=== PATIENT | male | born 1935 | race Caucasian/White ===

== ENCOUNTER 2017-06-16 05:33 | Outpatient (CLI) | payer MEDICARE ==
[~2017-06-16] VITALS: Ht 167.6 cm; Wt 76.7 kg
[~2017-06-16 05:33] MED LIST: ASPI-84; CLPD75T PO; CND32T PO; EZET10TA5 PO; FLAX100031 PO; FNST5T PO; FOLI0.4T2 PO; HCT25T PO; LOSA50TA6 PO; METO50TA7 PO; MULT-1029 PO; NF-ESOM40C PO; OMEG-12 PO; OMEP20TA2 PO; OSTEO BI-FLEX1 EACH PO; SMV20T PO; TRM50T PO
[2017-06-16] MEDS ORDERED: FINA5TAB6 PO (11:32)
[2017-06-16] MEDS ORDERED: METO50TA15 PO (11:32)
[2017-06-16] MEDS ORDERED: LOSA1TAB23 PO (11:32)
[2017-06-16] MEDS ORDERED: CLOP75TA28 PO (11:32)
[2017-06-16] MEDS ORDERED: ATOR80TA76 PO (11:33)
[2017-06-16] MEDS ORDERED: FURO40TA4 PO (11:33)
[2017-06-16] MEDS ORDERED: POTA99TA21 PO (11:33)
[2017-06-16] MEDS ORDERED: CYAN250010 PO (11:33)
[2017-06-16] MEDS ORDERED: PANT40TA3 PO (11:33)
== END 2017-06-16 11:34 ==
LOC: PREOP 05:33
PROVIDERS: ATTEND Internal Medicine
DX: Z01.818 Encounter for other preprocedural examination (principal); R19.7 Diarrhea, unspecified; R63.4 Abnormal weight loss

== ENCOUNTER 2017-06-20 07:20 | Day surgery (SDC) | payer MEDICARE ==
--- NOTE | 2017-06-16 05:57 | HISTORY AND PHYSICAL ---
DATE OF SERVICE: COLONOSCOPY HISTORY AND PHYSICAL HISTORY OF PRESENT ILLNESS: The patient is an 82-year-old white male referred by Dr. Blackmon for colonoscopy. He reports for the past month he has had left lower quadrant abdominal pain associated with diarrhea and about an 8-pound weight loss. He has had no chills or fever and denies bright red blood per rectum. Occasionally, his stools have been darker. He denies Pepto-Bismol usage, has used Kaopectate and Maalox. He has had no night sweats, chills or fever but does report a past history of diverticulitis. He also has a history of colon polyps that has been over 15 years since his last reported colonoscopy. PAST MEDICAL HISTORY: Significant for coronary artery disease, past history of stent placement over 5 years ago. He has history of hypertension and hyperlipidemia. He has a history of reflux for which he has been on pantoprazole. FAMILY HISTORY: He is not aware of any family history for colon cancer or other GI tract malignancy. SOCIAL HISTORY: He reports no past alcohol or smoking history. There is no history of illicit drug. MEDICATIONS ON ADMISSION: Include fish oil 1 capsule daily, metoprolol tartrate 50 mg daily, finasteride 5 mg daily, Plavix 75 mg daily, atorvastatin 80 mg daily, and losartan HCT 100/25 daily. He denies any nonsteroidal medication usage. REVIEW OF SYSTEMS: CONSTITUTIONAL: He denies night sweats, chills, fever. There is positive weight loss, 8 pounds last month. CARDIOVASCULAR: He does have a history of intervention, stent placement in the past. Denies chest pain at rest or with exertion. He has had a little more dyspnea on exertion, has had no presyncope or syncope. PULMONARY: He denies chest pain, cough, or wheezing. GASTROINTESTINAL: As per HPI. PSYCHIATRIC: He denies any ongoing problems with anxiety or depression. PHYSICAL EXAMINATION: GENERAL: Reveals a somewhat anxious appearing white male in no acute distress; otherwise, well kempt. VITAL SIGNS: Weight was 170 pounds. Last office weight on this patient was in 2008, when he weighed 172.4 pounds. Blood pressure 120/62, heart rate 72 and regular. HEENT: Unremarkable. Sclerae nonicteric. He has a Mallampati class 2 oropharyngeal configuration. No evidence for exudate or erythema are noted. NECK: Revealed no JVD, adenopathy or bruits. CHEST: Clear. CARDIOVASCULAR: Reveals a regular rate and rhythm without significant murmur, S3, or S4. ABDOMEN: Soft, supple. There is some mild left lower quadrant discomfort to palpation without rebound or guarding. No mass or organomegaly is noted. Bowel sounds are positive in all four quadrants and no bruits are noted. EXTREMITIES: Reveal no cyanosis, clubbing or edema. ASSESSMENT AND PLAN: 1. The patient is set up for diagnostic colonoscopy with possible EGD to follow for evaluation of left lower quadrant abdominal pain with diarrhea and associated weight loss. 2. Coronary artery disease. It has been more than 5 years since stent placement. We will have the patient stop Plavix and continue to abstain from nonsteroidal medications after this Friday with subsequent endoscopy to proceed on 06/20/2016. Prep instructions were given and questions were answered. I thank you for the referral of this pleasant gentleman. Job ID: [id number] DocumentID: [id number] Dictated Date: 06/12/2017 17:12:07 Insurance Agency Manager Date: 06/12/2017 17:43:12 Dictated By: MIGNON PADILLA MD [facility]
[~2017-06-20] VITALS: Ht 167.6 cm; Wt 76.7 kg
[~2017-06-20 07:20] MED LIST changes: +ATOR80TA76 PO; +CLOP75TA28 PO; +CYAN250010 PO; +FINA5TAB6 PO; +FURO40TA4 PO; +LOSA1TAB23 PO; +METO50TA15 PO; +PANT40TA3 PO; +POTA99TA21 PO
--- OUTSIDE RECORDS SUMMARY | 2017-06-20 07:24 | XMS REPORT ---
Author Author TARYN HOLT [facility] eClinicalWorks Address Unknown Phone Unavailable Care Team Providers Care Improvement Coordinator Name Role Phone TARYN HOLT Unavailable Allergies No Known Allergies Problems Problem Type Condition Code Onset Dates Condition Status Problem Rash and other nonspecific skin eruption 782.1 Active Medications Medication Code System Code Instructions Start Date End Date Status Dosage Plavix [facility] [address]-43 75 MG Orally Once a day Jun 01, 2014 1 tablet Results No Known Results Summary Purpose eClinicalWorks Submission
--- OUTSIDE RECORDS SUMMARY | 2017-06-20 07:24 | XMS REPORT ---
Author Author TARYN HOLT Organization eClinicalWorks Address Unknown Phone Unavailable Care Team Providers Care Fire Loss Prevention Engineer Name Role Phone TARYN HOLT CP Unavailable Allergies No Known Allergies Problems Problem Type Condition Code Onset Dates Condition Status Problem Hypertension I10 Active Problem Hyperlipidemia E78.5 Active Problem Coronary artery disease I25.10 Active Problem Rash and other nonspecific skin eruption 782.1 Active Problem GERD (gastroesophageal reflux disease) K21.9 Active Problem Chronic kidney disease N18.9 Active Medications Medication Code System Code Instructions Start Date End Date Status Dosage Plavix [facility] [address]-53 75 MG Orally Once a day Jun 01, 2014 1 tablet Results No Known Results Summary Purpose eClinicalWorks Submission
--- OUTSIDE RECORDS SUMMARY | 2017-06-20 07:24 | XMS REPORT ---
Author Author TARYN HOLT [facility] eClinicalWorks Address Unknown Phone Unavailable Care Team Providers Care Hot Metal Car Operator Name Role Phone TARYN HOLT CP Unavailable Allergies No Known Allergies Problems Problem Type Condition Code Onset Dates Condition Status Problem Rash and other nonspecific skin eruption 782.1 Active Medications No Known Medications Results No Known Results Summary Purpose eClinicalWorks Submission
--- OUTSIDE RECORDS SUMMARY | 2017-06-20 07:24 | XMS REPORT ---
Author Author TARYN HOLT Organization eClinicalWorks Address Unknown Phone Unavailable Care Team Providers Care News Analyst Name Role Phone TARYN HOLT CP Unavailable Allergies No Known Allergies Problems Problem Type Condition Code Onset Dates Condition Status Problem Coronary artery disease I25.10 Active Problem Hypertension I10 Active Problem Diastolic dysfunction I51.9 Active Problem Chronic kidney disease N18.9 Active Problem Hyperlipidemia E78.5 Active Problem GERD (gastroesophageal reflux disease) K21.9 Active Medications No Known Medications Results No Known Results Summary Purpose eClinicalWorks Submission
--- OUTSIDE RECORDS SUMMARY | 2017-06-20 07:24 | XMS REPORT ---
Author Author TARYN HOLT [facility] eClinicalWorks Address Unknown Phone Unavailable Care Team Providers Care Frame Coverer Name Role Phone TARYN HOLT CP Unavailable Allergies No Known Allergies Problems Problem Type Condition ICD-9 Code Onset Dates Condition Status Problem Rash and other nonspecific skin eruption 782.1 Active Medications No Known Medications Results No Known Results Summary Purpose eClinicalWorks Submission
--- OUTSIDE RECORDS SUMMARY | 2017-06-20 07:24 | XMS REPORT ---
Author Author TARYN HOLT [facility] eClinicalWorks Address Unknown Phone Unavailable Care Team Providers Care Parts Counterperson Name Role Phone TARYN HOLT CP Unavailable Allergies No Known Allergies Problems Problem Type Condition Code Onset Dates Condition Status Problem Coronary artery disease I25.10 Active Problem Hypertension I10 Active Problem Diastolic dysfunction I51.9 Active Problem Chronic kidney disease N18.9 Active Assessment Hypertension I10 Active Problem Hyperlipidemia E78.5 Active Problem GERD (gastroesophageal reflux disease) K21.9 Active Medications No Known Medications Procedures Procedure Coding System Code Date VENIPUNCT, ROUTINE* CPT-4 72885 Jan 23, 2016 [facility] NOBLL Jan 23, 2016 Results Name Result Date Reference Range Unit Abnormality Flag CMP ----Calcium, Serum 9.4 [id number] 8.6-10.2 mg/dL ----Carbon Dioxide, Total 23 [id number] 18-29 mmol/L ----ALT (SGPT) 21 [id number] 0-44 IU/L ----Creatinine, Serum 1.44 [id number] 0.76-1.27 mg/dL H ----AST (SGOT) 19 [id number] 0-40 IU/L ----eGFR If NonAfricn Am 46 [id number] >59 mL/min/1.73 L ----Alkaline Phosphatase, S 58 [id number] 39-117 IU/L ----eGFR If Africn Am 53 [id number] >59 mL/min/1.73 L ----Bilirubin, Total 0.6 [id number] 0.0-1.2 mg/dL ----BUN/Creatinine Ratio 23 [id number] 10-22 H ----A/G Ratio 1.5 [id number] 1.1-2.5 ----Sodium, Serum 143 [id number] 134-144 mmol/L ----Globulin, Total 2.7 [id number] 1.5-4.5 g/dL ----Potassium, Serum 4.3 [id number] 3.5-5.2 mmol/L ----Glucose, Serum 105 [id number] 65-99 mg/dL H ----Chloride, Serum 104 [id number] 97-108 mmol/L ----Albumin, Serum 4.0 [id number] 3.5-4.7 g/dL ----BUN 33 [id number] 8-27 mg/dL H ----Protein, Total, Serum 6.7 [id number] 6.0-8.5 g/dL ROUTINE VENIPUNCTURE LIPID PANEL ----VLDL Cholesterol Wesley 16 [id number] 5-40 mg/dL ----LDL Cholesterol Calc 87 [id number] 0-99 mg/dL ----Triglycerides 78 [id number] 0-149 mg/dL ----HDL Cholesterol 33 [id number] >39 mg/dL L ----Cholesterol, Total 136 [id number] 100-199 mg/dL Summary Purpose eClinicalWorks Submission
--- OUTSIDE RECORDS SUMMARY | 2017-06-20 07:24 | XMS REPORT ---
Author Author TARYN HOLT Organization eClinicalWorks Address Unknown Phone Unavailable Care Team Providers Care General Manager Farm Name Role Phone TARYN HOLT Unavailable Allergies No Known Allergies Problems Problem Type Condition ICD-9 Code Onset Dates Condition Status Problem Rash and other nonspecific skin eruption 782.1 Active Medications Medication Code System Code Instructions Start Date End Date Status Dosage Keflex [facility] [address]-05 500 MG Orally Twice a day Dec 23, 2014 Jan 02, 2015 1 capsule Results No Known Results Summary Purpose eClinicalWorks Submission
--- OUTSIDE RECORDS SUMMARY | 2017-06-20 07:24 | XMS REPORT ---
Author Author TARYN HOLT [facility] Address [address] [place] [address] Care Team Providers Care Rock Contractor Name Role Phone TARYN HOLT Unavailable PROBLEMS Type Condition ICD9-CM Code [id number] Code Onset Dates Condition Status SNOMED Code Problem Diastolic dysfunction I51.9 Active 0652664 Problem Hypertension I10 Active 22770669 Problem Hyperlipidemia E78.5 Active 81794674 Problem Chronic kidney disease N18.9 Active 659510725 Problem GERD (gastroesophageal reflux disease) K21.9 Active 477865919 Problem Coronary artery disease I25.10 Active 21373617 ALLERGIES No Information SOCIAL HISTORY Never Assessed PLAN OF CARE VITAL SIGNS MEDICATIONS No Known Medications RESULTS No Results PROCEDURES No Known procedures IMMUNIZATIONS No Known Immunizations MEDICAL (GENERAL) HISTORY Type Description Date Medical History hypertension Medical History hyperlipidemia Medical History TIA Medical History [place] 1987 Surgical History appendectomy; age 31 Surgical History hernia repair Surgical History heart cath Hospitalization History septic from appendix rupture Hospitalization History [place]
--- OUTSIDE RECORDS SUMMARY | 2017-06-20 07:24 | XMS REPORT ---
Author Author NIALL CLARK Organization eClinicalWorks Address Unknown Phone Unavailable Care Team Providers Care Weight Loss Sales Consultant Name Role Phone NIALL CLARK CP Unavailable Allergies No Known Allergies Problems Problem Type Condition Code Onset Dates Condition Status Problem Coronary artery disease I25.10 Active Problem Hypertension I10 Active Problem Diastolic dysfunction I51.9 Active Problem Chronic kidney disease N18.9 Active Problem Rash and other nonspecific skin eruption 782.1 Active Problem Hyperlipidemia E78.5 Active Problem GERD (gastroesophageal reflux disease) K21.9 Active Medications No Known Medications Results No Known Results Summary Purpose eClinicalWorks Submission
--- OUTSIDE RECORDS SUMMARY | 2017-06-20 07:24 | XMS REPORT ---
Author Author TARYN HOLT Organization eClinicalWorks Address Unknown Phone Unavailable Care Team Providers Care Provider Contracting Consultant Name Role Phone TARYN HOLT CP Unavailable Allergies No Known Allergies Problems Problem Type Condition Code Onset Dates Condition Status Assessment Medication monitoring encounter Z51.81 Active Problem Rash and other nonspecific skin eruption 782.1 Active Medications No Known Medications Results No Known Results Summary Purpose eClinicalWorks Submission
--- OUTSIDE RECORDS SUMMARY | 2017-06-20 07:25 | XMS REPORT ---
Author Author TARYN HOLT Organization eClinicalWorks Address Unknown Phone Unavailable Care Team Providers Care Animal Care Technician Name Role Phone TARYN HOLT CP Unavailable [...]
--- OUTSIDE RECORDS SUMMARY | 2017-06-20 07:25 | XMS REPORT ---
Author NIALL Spivey [facility] eClinicalWorks Address Unknown Phone Unavailable Care Team Providers Care Rod Puller And Coiler Name Role Phone NIALL CLARK CP Unavailable Allergies, Adverse Reactions, Alerts Substance Reaction Event Type N.K.D.A. 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 Problem Coronary artery disease I25.10 Active Problem Hypertension I10 Active Problem Diastolic dysfunction I51.9 Active Problem Chronic kidney disease N18.9 Active Problem Rash and other nonspecific skin eruption 782.1 Active Problem Hyperlipidemia E78.5 Active Problem GERD (gastroesophageal reflux disease) K21.9 Active Medications Medication Code System Code Instructions Start Date End Date Status Dosage Fish Oil [facility] [address]-11 1000 MG Orally Once a day 1 capsule Centrum Silver Adult [address] [facility] [address]-12 Orally not defined Atorvastatin Calcium [facility] [address]-28 80 MG Orally Once a day [address] [facility] [address]-91 40 MG Orally Once a day May 11, [address] [facility] 60769767265 40 Orally Once a day [address] [facility] [address]-75 75 MG Orally Once a day Jun 01, 2014 1 tablet Pantoprazole Sodium [facility] [address]-89 40 MG Orally Once a day 1 tablet Losartan Potassium-HCTZ [facility] [address]-25 100-25 MG Orally Once a day 1 tablet Osteo Bi-Flex Triple Strength [facility] 27031-[address]27 750-625-30 mg August 05, 2012 1 caplet 1 time per day Metoprolol Tartrate [facility] [address]-02 50 MG Orally Twice a day Jun 01, 2014 take 1 tablet by Oral route 1 time per day with meals Psyllium Husk [facility] [address]-28 not defined Super B Complex/Vitamin C [facility] 13454-[address]273 Orally not defined Finasteride [facility] [address]-21 5 MG Orally Once a day Jun 01, 2014 1 tablet by Oral route 1 time per day Procedures Procedure Coding System Code Date [facility] VISIT ESTABLISHED PATIENT CPT-4 G0467 October 31, 2015 Office Visit, Est Pt., Level 2 CPT-4 02091 October 31, 2015 EXC TR-EXT B9 PENELOPE 2.1-3 CM CPT-4 15235 October 31, 2015 Vital Signs Date/Time: October 31, 2015 Cardiac Monitoring Heart Rate 60 bpm Weight 181.7 lbs Height 68 in Blood Pressure Diastolic 76 mmHg Blood Pressure Systolic 142 mmHg Results No Known Results Summary Purpose eClinicalWorks Submission
--- OUTSIDE RECORDS SUMMARY | 2017-06-20 07:25 | XMS REPORT ---
Author TARYN Villalobos [facility] eClinicalWorks Address Unknown Phone Unavailable Care Team Providers Care Balance Bridge Assembler Name Role Phone TARYN HOLT CP Unavailable Allergies, Adverse Reactions, Alerts Substance Reaction Event Type N.K.D.A. Info Not Available Non Drug Allergy Problems Problem Type Condition Code Onset Dates Condition Status Assessment GERD (gastroesophageal reflux disease) K21.9 Active Assessment Hypertension I10 Active Assessment Hyperlipidemia E78.5 Active Assessment Chronic kidney disease N18.9 Active Problem Hypertension I10 Active Problem Hyperlipidemia E78.5 Active Problem Coronary artery disease I25.10 Active Problem Rash and other nonspecific skin eruption 782.1 Active Assessment Coronary artery disease I25.10 Active Problem GERD (gastroesophageal reflux disease) K21.9 Active Problem Chronic kidney disease N18.9 Active Medications Medication Code System Code Instructions Start Date End Date Status Dosage Psyllium Husk [facility] [address]-49 not defined Finasteride [facility] [address]-56 5 mg Jun 01, 2014 1 tablet by Oral route 1 time per day Atorvastatin Calcium [facility] [address]-99 80 MG Orally Once a day 1 tablet Osteo Bi-Flex Triple Strength [facility] 56185-44743 750-625-30 mg August 05, 2012 1 caplet 1 time per day Super B Complex/Vitamin C [facility] 39[address]-50240 Orally not defined Pantoprazole Sodium [facility] [address]-66 40 MG Orally Once a day 1 tablet Centrum Silver Adult 50+ [facility] [address]-64 Orally not defined Losartan Potassium-HCTZ [facility] [address]-99 100-25 MG Orally Once a day 1 tablet Plavix [facility] [address]-36 75 MG Orally Once a day Jun 01, 2014 1 tablet Metoprolol Tartrate [facility] [address]-75 50 mg Jun 01, 2014 take 1 tablet by Oral route 1 time per day with meals Fish Oil [facility] [address]-33 1000 MG Orally Once a day 1 capsule Procedures Procedure Coding System Code Date Office Visit, Est Pt., Level 4 CPT-4 70796 May 01, 2015 [facility] VISIT ESTABLISHED PATIENT CPT-4 G0467 May 01, 2015 Vital Signs Date/Time: May 01, 2015 Temperature 97.7 F Weight 183 lbs Height 68 in BMI 27.82 Index Blood Pressure Diastolic 70 mmHg Blood Pressure Systolic 144 mmHg Cardiac Monitoring Heart Rate 64 bpm Results No Known Results Summary Purpose eClinicalWorks Submission
--- OUTSIDE RECORDS SUMMARY | 2017-06-20 07:25 | XMS REPORT ---
Author Author TARYN HOLT [facility] Address [address] [place] [address] Care Team Providers Care Aerotriangulation Specialist Name Role Phone TARYN HOLT Unavailable PROBLEMS Type Condition ICD9-CM Code [id number] Code Onset Dates Condition Status SNOMED Code Problem Diastolic dysfunction I51.9 Active 8114099 Problem Coronary artery disease I25.10 Active 85438419 Problem GERD (gastroesophageal reflux disease) K21.9 Active 071337533 Problem Chronic kidney disease N18.9 Active 557073095 Problem Hypertension I10 Active 00815133 Problem Hyperlipidemia E78.5 Active 21897654 ALLERGIES Substance Reaction Event Type Date Status N.K.D.A. Unknown Non Drug Allergy Mar, Unknown SOCIAL HISTORY No smoking Hx information available PLAN OF CARE Activity Details Follow Up annually for preventive care, sooner for chronic health maintenance Reason: VITAL SIGNS Height 68 in 2016-04-04 Weight 177.0 lbs 2016-04-04 Temperature 97.9 degrees Fahrenheit 2016-04-04 Heart Rate 60 bpm 2016-04-04 Respiratory Rate 18 2016-04-04 BMI 26.91 kg/m2 2016-04-04 Blood pressure systolic 136 mmHg 2016-04-04 Blood pressure diastolic 70 mmHg 2016-04-04 MEDICATIONS Medication Instructions Dosage Frequency Start Date End Date Duration Status Pantoprazole Sodium 40 MG Orally Once a day 1 tablet 24h Active Losartan Potassium-HCTZ 100-25 MG Orally Once a day 1 tablet 24h Active Atorvastatin Calcium 80 MG Orally Once a day 1 tablet 24h Active Osteo Bi-Flex Triple Strength 750-625-30 mg 1 caplet 1 time per day Jul, Active Centrum Silver Adult 50+ Active Metoprolol Tartrate 50 MG Orally Twice a day take 1 tablet by Oral route 1 time per day with meals 12h May, Active Finasteride 5 MG Orally Once a day 1 tablet by Oral route 1 time per day 24h May, Active Fish Oil 1000 MG Orally Once a day 1 capsule 24h Active Plavix 75 MG Orally Once a day 1 tablet 24h 11 May, 2014 Active Psyllium Husk Active RESULTS No Results PROCEDURES Procedure Date Ordered Related Diagnosis Body Site [facility] VISIT IPPE/AWV Apr 04, 2016 ANNUAL DAVID KUMART; TERRELL DIAZ INIT Apr 04, 2016 IMMUNIZATIONS No Known Immunizations
--- OUTSIDE RECORDS SUMMARY | 2017-06-20 07:25 | XMS REPORT ---
Author Author TARYN HOLT Organization eClinicalWorks Address Unknown Phone Unavailable Care Team Providers Care Esthetician Spa Name Role Phone TARYN HOLT CP Unavailable [...]
--- OUTSIDE RECORDS SUMMARY | 2017-06-20 07:25 | XMS REPORT ---
Author Author TARYN HOLT [facility] eClinicalWorks Address Unknown Phone Unavailable Care Team Providers Care Radiographic Technologist Name Role Phone TARYN HOLT Unavailable Allergies No Known Allergies Problems Problem Type Condition Code Onset Dates Condition Status Assessment Medication monitoring encounter Z51.81 Active Problem Rash and other nonspecific skin eruption 782.1 Active Medications No Known Medications Procedures Procedure Coding System Code Date VENIPUNCT, ROUTINE* CPT-4 15021 Apr 26, 2015 LAB NOT BILLED BY [facility] CPT-4 NOBLL Apr 26, 2015 Results Name Result Date Reference Range Unit Abnormality Flag ROUTINE VENIPUNCTURE Summary Purpose eClinicalWorks Submission
--- OUTSIDE RECORDS SUMMARY | 2017-06-20 07:25 | XMS REPORT ---
Author Author TARYN HOLT Organization eClinicalWorks Address Unknown Phone Unavailable Care Team Providers Care Clay Processing Labourer Name Role Phone TARYN HOLT CP Unavailable [...]
--- OUTSIDE RECORDS SUMMARY | 2017-06-20 07:25 | XMS REPORT ---
Author TARYN Villalobos [facility] eClinicalWorks Address Unknown Phone Unavailable Care Team Providers Care Practice Specialist Name Role Phone TARYN HOLT CP Unavailable Allergies, Adverse Reactions, Alerts Substance Reaction Event Type N.K.D.A. Info Not Available Non Drug Allergy Problems Problem Type Condition Code Onset Dates Condition Status Assessment Coronary artery disease I25.10 Active Assessment Encounter for immunization Z23 Active Assessment Hyperlipidemia E78.5 Active Problem Coronary artery disease I25.10 Active Problem Hypertension I10 Active Problem Diastolic dysfunction I51.9 Active Problem Chronic kidney disease N18.9 Active Assessment Hypertension I10 Active Problem Hyperlipidemia E78.5 Active Problem GERD (gastroesophageal reflux disease) K21.9 Active Medications Medication Code System Code Instructions Start Date End Date Status Dosage Finasteride [facility] [address]-99 5 MG Orally Once a day Jun 01, 2014 1 tablet by Oral route 1 time per day Centrum Silver Adult 50+ [facility] [address]-77 Orally not defined Losartan Potassium-HCTZ [facility] [address]-05 100-25 MG Orally Once a day 1 tablet Atorvastatin Calcium [facility] [address]-95 80 MG Orally Once a day 1 tablet Fish Oil [facility] [address]-08 1000 MG Orally Once a day 1 capsule Psyllium Husk [facility] [address]-58 not defined Metoprolol Tartrate [facility] [address]-66 50 MG Orally Twice a day Jun 01, 2014 take 1 tablet by Oral route 1 time per day with meals Pantoprazole Sodium [facility] [address]-12 40 MG Orally Once a day 1 tablet Super B Complex/Vitamin C [facility] [address] Orally not defined Plavix [facility] [address]-62 75 MG Orally Once a day Jun 01, 2014 1 tablet Osteo Bi-Flex Triple Strength [facility] [address]76[address]33 750-625-30 mg August 05, 2012 1 caplet 1 time per day Procedures Procedure Coding System Code Date Office Visit, Est Pt., Level 3 CPT-4 45950 Jan 30, 2016 FLUZONE HIGH DOSE 65 AND UP 2015 CPT-4 74530 Jan 30, 2016 [facility] VISIT ESTABLISHED PATIENT CPT-4 G0467 Jan 30, 2016 SINGLE IMMUNIZATION ADMIN CPT-4 12142 Jan 30, 2016 Vital Signs Date/Time: Jan 30, 2016 Cardiac Monitoring Heart Rate 64 bpm Weight 182.8 lbs Height 68 in BMI 27.79 Index Blood Pressure Diastolic 60 mmHg Blood Pressure Systolic 150 mmHg Results No Known Results Immunizations Vaccine Administration Date FLUZONE HIGH DOSE 65 AND UP 2015Jan 30, 2016 Summary Purpose eClinicalWorks Submission
--- OUTSIDE RECORDS SUMMARY | 2017-06-20 07:25 | XMS REPORT ---
Author TARYN Villalobos [facility] eClinicalWorks Address Unknown Phone Unavailable Care Team Providers Care Pocket Cutter Name Role Phone TARYN HOLT CP Unavailable Allergies, Adverse Reactions, Alerts Substance Reaction Event Type N.K.D.A. Info Not Available Non Drug Allergy Problems Problem Type Condition ICD-9 Code Onset Dates Condition Status Assessment Dyspnea 786.09 Active Problem Rash and other nonspecific skin eruption 782.1 Active Medications Medication Code System Code Instructions Start Date End Date Status Dosage Finasteride [facility] [address]-96 5 mg Jun 01, 2014 1 tablet by Oral route 1 time per day Plavix [facility] [address]-25 75 mg Jun 01, 2014 take 1 tablet (75 mg) by oral route once daily Osteo Bi-Flex Triple Strength [facility] 77674-96525 750-625-30 mg August 05, 2012 1 caplet 1 time per day Simvastatin [facility] [address]-03 80 mg Jun 01, 2014 take 1 tablet by Oral route 1 time per day in the evening Metoprolol Tartrate [facility] [address]-18 50 mg Jun 01, 2014 take 1 tablet by Oral route 1 time per day with meals Pantoprazole Sodium [facility] [address]-16 40 MG Orally Once a day 1 tablet Furosemide [facility] [address]-47 40 MG Orally Once a day Dec 19, 2014 1 tablet Procedures Procedure Coding System Code Date COMPREHEN METABOLIC PANEL CPT-4 04392 Dec 19, 2014 VENIPUNCT, ROUTINE* CPT-4 90616 Dec 19, 2014 COMPLETE CBC W/AUTO DIFF WBC CPT-4 45649 Dec 19, 2014 Office Visit, Est Pt., Level 3 CPT-4 12898 Dec 19, 2014 NATRIURETIC PEPTIDE CPT-4 85492 Dec 19, 2014 Vital Signs Date/Time: Dec 19, 2014 Temperature 98.4 F Weight 181 lbs Height 68 in BMI 27.52 Index Blood Pressure Diastolic 70 mmHg Blood Pressure Systolic 180 mmHg Cardiac Monitoring Heart Rate 70 bpm Results Name Result Date Reference Range Unit Abnormality Flag ROUTINE VENIPUNCTURE CBC Summary Purpose eClinicalWorks Submission
--- OUTSIDE RECORDS SUMMARY | 2017-06-20 07:26 | XMS REPORT | Continuity of Care Document ---
Author Author [facility] Address Unknown Phone Unavailable Allergies Active Description Code Type Severity Reaction Onset Reported/Identified Relationship to Patient Clinical Status Yes IV DYE IV DYE Moderate FELT WARM ALL O 01/15/2012 Medications There is no data. 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 06/26/2009 TARYN HOLT MD 272.4 HYPERLIPIDEMIA HYPERLIPOPROTEINEMIAS (Old Classification) 06/26/2009 TARYN HOLT MD 401.1 ESSENTIAL HYPERTENSION BENIGN 06/26/2009 TARYN HOLT MD 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 06/26/2009 TARYN HOLT MD 272.4 HYPERLIPIDEMIA HYPERLIPOPROTEINEMIAS (Old Classification) 06/26/2009 TARYN HOLT MD 401.1 ESSENTIAL HYPERTENSION BENIGN 06/26/2009 TARYN HOLT MD 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 06/26/2009 TARYN HOLT MD 272.4 HYPERLIPIDEMIA HYPERLIPOPROTEINEMIAS (Old Classification) 06/26/2009 TARYN HOLT MD 401.1 ESSENTIAL HYPERTENSION BENIGN 06/26/2009 TARYN HOLT MD 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 06/26/2009 TARYN HOLT MD 272.4 HYPERLIPIDEMIA HYPERLIPOPROTEINEMIAS (Old Classification) 06/26/2009 TARYN HOLT MD 401.1 ESSENTIAL HYPERTENSION BENIGN 06/26/2009 TARYN HOLT MD 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 10/19/2009 TARYN HOLT MD 786.05 SHORTNESS OF BREATH 10/19/2009 TARYN HOLT MD 786.05 SHORTNESS OF BREATH 10/19/2009 TARYN HOLT MD 786.05 SHORTNESS OF BREATH 10/19/2009 TARYN HOLT MD 786.05 SHORTNESS OF BREATH 10/19/2009 TARYN HOLT MD 786.05 SHORTNESS OF BREATH 10/19/2009 TARYN HOLT MD 786.05 SHORTNESS OF BREATH 12/13/2009 Ot 211.3 12/13/2009 Ot 558.9 12/13/2009 Ot 562.10 12/13/2009 Ot 569.0 12/13/2009 Ot 600.00 12/13/2009 Ot V18.59 02/27/2010 Ot 451.0 02/27/2010 Ot 729.5 07/10/2010 TARYN HOLT MD 562.11 DIVERTICULITIS OF COLON (WITHOUT HEMORRHAGE) 07/10/2010 TARYN HOLT MD 562.11 DIVERTICULITIS OF COLON (WITHOUT HEMORRHAGE) 07/10/2010 TARYN HOLT MD2.11 DIVERTICULITIS OF COLON (WITHOUT HEMORRHAGE) 07/10/2010 TARYN HOLT MD2.11 DIVERTICULITIS OF COLON (WITHOUT HEMORRHAGE) 07/10/2010 TARYN HOLT MD 562.11 DIVERTICULITIS OF COLON (WITHOUT HEMORRHAGE) 07/10/2010 TARYN HOLT MD 562.11 DIVERTICULITIS OF COLON (WITHOUT HEMORRHAGE) 10/29/2011 TARYN HOLT MD 782.1 RASH AND OTHER NONSPECIFIC SKIN ERUPTION 10/29/2011 TARYN HOLT MD 782.1 RASH AND OTHER NONSPECIFIC SKIN ERUPTION 10/29/2011 TARYN HOLT MD 782.1 RASH AND OTHER NONSPECIFIC SKIN ERUPTION 10/29/2011 TARYN HOLT MD 782.1 RASH AND OTHER NONSPECIFIC SKIN ERUPTION 10/29/2011 TARYN HOLT MD 782.1 RASH AND OTHER NONSPECIFIC SKIN ERUPTION 10/29/2011 TARYN HOLT MD 782.1 RASH AND OTHER NONSPECIFIC SKIN ERUPTION 01/15/2012 Ot 607.9 DISORDER OF PENIS NOS 01/15/2012 Ot 709.9 SKIN DISORDER NOS 08/06/2012 Ot 173.41 BASAL CELL CARCINOMA OF SCALP AND SKIN O 08/06/2012 Ot 706.2 SEBACEOUS CYST 05/08/2015 Ot 789.01 05/08/2015 Ot 250.00 05/08/2015 Ot 327.23 05/08/2015 Ot 416.8 05/08/2015 Ot 427.31 05/08/2015 Ot 428.0 05/08/2015 Ot 607.9 05/08/2015 Ot V58.61 05/08/2015 Ot V72.63 05/08/2015 Ot V72.81 05/08/2015 Ot V74.8 05/08/2015 Ot 369.67 05/08/2015 Ot 433.30 05/08/2015 Ot 397.0 05/08/2015 Ot 424.0 05/08/2015 Ot 435.9 05/08/2015 Ot 789.00 05/08/2015 Ot 709.9 05/08/2015 Ot V72.63 05/08/2015 Ot V74.8 05/08/2015 MABEL VILLALOBOS DO Ot 786.05 05/16/2015 YANET SILVER, TARYN Hebert Ot I25.10 05/16/2015 YANET SILVER, TARYN Hebert Ot I25.10 07/18/2015 Ot 789.01 07/18/2015 Ot 250.00 07/18/2015 Ot 327.23 07/18/2015 Ot 416.8 07/18/2015 Ot 427.31 07/18/2015 Ot 428.0 07/18/2015 Ot 607.9 07/18/2015 Ot V58.61 07/18/2015 Ot V72.63 07/18/2015 Ot V72.81 07/18/2015 Ot V74.8 07/18/2015 Ot 369.67 07/18/2015 Ot 433.30 07/18/2015 Ot 397.0 07/18/2015 Ot 424.0 07/18/2015 Ot 435.9 07/18/2015 Ot 789.00 07/18/2015 Ot 709.9 07/18/2015 Ot V72.63 07/18/2015 Ot V74.8 07/18/2015 MABEL VILLALOBOS DO Ot 786.05 07/18/2015 YANET SILVER, TARYN Hebert Ot I25.10 07/18/2015 Ot 789.01 07/18/2015 Ot 250.00 07/18/2015 Ot 327.23 07/18/2015 Ot 416.8 07/18/2015 Ot 427.31 07/18/2015 Ot 428.0 07/18/2015 Ot 607.9 07/18/2015 Ot V58.61 07/18/2015 Ot V72.63 07/18/2015 Ot V72.81 07/18/2015 Ot V74.8 07/18/2015 Ot 369.67 07/18/2015 Ot 433.30 07/18/2015 Ot 397.0 07/18/2015 Ot 424.0 07/18/2015 Ot 435.9 07/18/2015 Ot 789.00 07/18/2015 Ot 709.9 07/18/2015 Ot V72.63 07/18/2015 Ot V74.8 07/18/2015 WILFREDO ROCHA, MABEL Caballero Ot 786.05 07/18/2015 YANET SILVER, TARYN Hebert Ot I25.10 07/28/2015 YANET SILVER, TARYN Hebert Ot I25.10 06/16/2017 RANDY SILVER, MIGNON Michelle Ot R19.7 DIARRHEA, UNSPECIFIED 06/16/2017 RANDY SILVER, MIGNON Michelle Ot R63.4 ABNORMAL WEIGHT LOSS 06/16/2017 RANDY SILVER, MIGNON Michelle Ot Z01.818 ENCOUNTER FOR OTHER PREPROCEDURAL EXAMIN 06/17/2017 RANDY SILVER, MIGNON Michelle Ot R19.7 DIARRHEA, UNSPECIFIED 06/17/2017 RANDY SILVER, MIGNON Michelle Ot R63.4 ABNORMAL WEIGHT LOSS 06/17/2017 RANDY SILVER, MIGNON Michelle Ot Z01.818 ENCOUNTER FOR OTHER PREPROCEDURAL EXAMIN 06/18/2017 Ot 250.00 DIAB PRANAV WO COMPL, TYPE II OR UNSPEC TY 06/18/2017 Ot 327.23 OBSTRUCTIVE SLEEP APNEA (ADULT) (PEDIATR 06/18/2017 Ot 416.8 CHR PULMON HEART DIS NEC 06/18/2017 Ot 427.31 ATRIAL FIBRILLATION 06/18/2017 Ot 428.0 CONGESTIVE HEART FAILURE NOS 06/18/2017 Ot 607.9 DISORDER OF PENIS NOS 06/18/2017 Ot V58.61 ANTICOAGULANTS,LT,CURRENT USE 06/18/2017 Ot V72.63 PRE- PROCEDURAL LABORATORY EXAMINATION 06/18/2017 Ot V72.81 EXAM-PRE- OPERATIVE CARDIOVASCULAR 06/18/2017 Ot V74.8 SCREEN- BACTERIAL DIS NEC 06/18/2017 Ot 369.67 ONE EYE- PRFOUND/OTH-UNKN 06/18/2017 Ot 433.30 MULT BILTRAL ARTERY OCCLUSION WO CEREBRA 06/18/2017 Ot 397.0 TRICUSPID VALVE DISEASE 06/18/2017 Ot 424.0 MITRAL VALVE DISORDER 06/18/2017 Ot 435.9 TRANS CEREB ISCHEMIA NOS 06/18/2017 Ot 789.00 ABDOMINAL PAIN, UNSPECIFIED SITE 06/18/2017 Ot 709.9 SKIN DISORDER NOS 06/18/2017 Ot V72.63 PRE- PROCEDURAL LABORATORY EXAMINATION 06/18/2017 Ot V74.8 SCREEN- BACTERIAL DIS NEC 06/18/2017 MABEL VILLALOBOS DO Ot 786.05 SHORTNESS OF BREATH 06/18/2017 YANET SILVRE, TARYN Hebert Ot I25.10 ATHSCL HEART DISEASE OF [place] CORONARY 06/18/2017 Ot 250.00 DIAB PRANAV WO COMPL, TYPE II OR UNSPEC TY 06/18/2017 Ot 327.23 OBSTRUCTIVE SLEEP APNEA (ADULT) (PEDIATR 06/18/2017 Ot 416.8 CHR PULMON HEART DIS NEC 06/18/2017 Ot 427.31 ATRIAL FIBRILLATION 06/18/2017 Ot 428.0 CONGESTIVE HEART FAILURE NOS 06/18/2017 Ot 607.9 DISORDER OF PENIS NOS 06/18/2017 Ot V58.61 ANTICOAGULANTS,LT,CURRENT USE 06/18/2017 Ot V72.63 PRE- PROCEDURAL LABORATORY EXAMINATION 06/18/2017 Ot V72.81 EXAM-PRE- OPERATIVE CARDIOVASCULAR 06/18/2017 Ot V74.8 SCREEN- BACTERIAL DIS NEC 06/18/2017 Ot 369.67 ONE EYE- PRFOUND/OTH-UNKN 06/18/2017 Ot 433.30 MULT BILTRAL ARTERY OCCLUSION WO CEREBRA 06/18/2017 Ot 397.0 TRICUSPID VALVE DISEASE 06/18/2017 Ot 424.0 MITRAL VALVE DISORDER 06/18/2017 Ot 435.9 TRANS CEREB ISCHEMIA NOS 06/18/2017 Ot 789.00 ABDOMINAL PAIN, UNSPECIFIED SITE 06/18/2017 Ot 709.9 SKIN DISORDER NOS 06/18/2017 Ot V72.63 PRE- PROCEDURAL LABORATORY EXAMINATION 06/18/2017 Ot V74.8 SCREEN- BACTERIAL DIS NEC 06/18/2017 MABEL VILLALOBOS DO Ot 786.05 SHORTNESS OF BREATH 06/18/2017 TARYN HOLT MD Ot I25.10 ATHSCL HEART DISEASE OF [place] CORONARY Procedures Code Description [place] [address] ROUTINE VENIPUNCTURE 03/16/2012 43870 CMP 03/16/2012 35125 LIPID PANEL 03/16/20123135769 GFR CALC (RESULT ONLY) 03/16/2012 14099 ROUTINE VENIPUNCTURE 03/05/2013 26986 ROUTINE VENIPUNCTURE 03/05/20137928629 GFR CALC (RESULT ONLY) 03/05/2013 36217 CMP 03/05/2013 93133 LIPID PANEL 03/05/2013 7160284 GFR CALC (RESULT ONLY) 03/05/2013 32580 CMP 03/05/2013 50820 LIPID PANEL 03/05/2013 61317 ROUTINE VENIPUNCTURE 05/24/2014 5958699 GFR CALC (RESULT ONLY) 05/24/2014 27461 CMP 05/24/2014 31945 LIPID PANEL 05/24/2014 Results There is no data. Encounters ACCT No. Visit Date/Time Discharge Status Pt. Type Provider Facility Loc./Unit Complaint [id number] 05/31/2014 09:48:00 05/31/2014 23:59:59 CLS Outpatient TARYN HOLT MD [id number] 05/24/2014 09:15:00 05/24/2014 23:59:59 CLS Outpatient TARYN HOLT MD [id number] 03/31/2014 09:39:00 03/31/2014 23:59:59 CLS Outpatient TARYN HOLT MD [id number] 03/05/2013 10:00:00 03/05/2013 23:59:59 CLS Outpatient TARYN HOLT MD [id number] 03/05/2013 10:00:00 03/05/2013 23:59:59 [place] [id number] 10/29/2011 10:13:00 10/29/2011 23:59:59 CLS Outpatient TARYN HOLT MD [id number] 06/16/2017 05:33:00 06/16/2017 11:34:00 DIS Outpatient RANDY SILVER, MIGNON Michelle [facility] PREOP COLONOSCOPY/EGD [id number] 05/08/2015 08:43:00 05/08/2015 23:59:59 CLS Outpatient TARYN HOLT MD [facility] CARD CAD [id number] 11/26/2013 11:51:00 11/26/2013 23:59:59 CLS Outpatient MABEL VILLALOBOS DO [facility] RAD SOA [id number] 06/20/2017 07:20:00 ACT Outpatient MIGNON PADILLA MD [facility] ENDO ABD PAIN/DIARRHEA/WT LOSS [id number] 08/06/2012 06:05:00 Document Registration [id number] 08/03/2012 11:17:00 Document Registration [id number] 07/06/2012 10:03:00 Document Registration [id number] 05/29/2012 10:06:00 Document Registration [id number] 05/27/2012 13:11:00 Document Registration [id number] 01/15/2012 05:43:00 Document Registration [id number] 01/10/2012 13:39:00 Document Registration [id number] 12/27/2010 08:35:00 Document Registration [id number] 02/27/2010 08:24:00 Document Registration [id number] 12/13/2009 06:27:00 Document Registration
[2017-06-20] MEDS ORDERED: LIDOCAINE JELLY 2% (XYLOCAINE) 5 ML TUBE MM PRN (07:30)
[2017-06-20] MEDS ORDERED: 1/2 NS IV SOLUTION 1,000 ML IV STA (07:30)
[2017-06-20] MEDS ORDERED: HURRICAINE EXT TUBE (BENZOCAINE) XX PRN (07:30)
[2017-06-20 07:48] VITALS: BP 150/82
--- NOTE | 2017-06-20 08:06 | Pre-Op Note & Conscious Sedat ---
Pre-Operative Progress Note H&P Reviewed The H&P was reviewed, patient examined and no changes noted. Date H&P Reviewed: Jun 20, 2017 Time H&P Reviewed: 08:05 Conscious Sedation Pre-Proced ASA Class: 2 Airway Mallampati Classification: ([place] appropriate class) I. II. III, IV Lungs Heart ASA score ASA 1: a normal healthy patient ASA 2: a patient with a mild systemic disease (mid diabetes, controlled hypertension, obesity ASA 3: a patient with a severe systemic disease that limits activity (angina , COPD, prior Myocardial infarction) ASA 4: a patient with an incapacitating disease that is a constant threat to life (CHF, renal failure) ASA 5: a moribund patient not expected to survive 24 hrs. (ruptured aneurysm) ASA 6: a declared brain patient whose organs are being harvested. For emergent operations, add the letter E after the classification Grade 2 Sedation Plan: Analgesia, Amnesia, Plan communicated to team members, Discussed options with patient/fam, Discussed risks with patient/fam Note The patient is an appropriate candidate to undergo the planned procedure, sedation, and anesthesia. The patient immediately re-assessed prior to indication. MIGNON PADILLA MD Jun 20, 2017 08:06
[2017-06-20] MEDS ORDERED: fentaNYL INJECTION 100 MCG/2 ML AMP ONE (08:41)
[2017-06-20] MEDS ORDERED: MIDAZOLAM 2 MG/2 ML (VERSED) VIAL ONE ×3 (08:41)
[2017-06-20] MEDS ORDERED: HURRICAINE EXT TUBE (BENZOCAINE) ONE (08:42)
[2017-06-20] MEDS ORDERED: LIDOCAINE JELLY 2% (XYLOCAINE) 5 ML TUBE ONE (08:42)
[2017-06-20] MEDS: fentaNYL INJECTION 100 MCG/2 ML AMP IVP PRN ×2 (08:53→08:58)
[2017-06-20] MEDS: MIDAZOLAM 2 MG/2 ML (VERSED) VIAL IVP PRN ×2 (08:55→09:27)
[2017-06-20 09:50] VITALS: BP 122/67
[2017-06-20 10:30] VITALS: BP 121/67
[2017-06-20 11:10] VITALS: BP 121/67
--- NOTE | 2017-06-20 23:59 | OPERATIVE REPORT ---
DATE OF SERVICE: PANENDOSCOPY SUMMARY Panendoscopy is performed for a five-week history of diarrhea and abdominal pain as well as intermittent dysphagia. The patient was placed in the left lateral decubitus position. Prior to undergoing colonoscopy, digital rectal evaluation was performed. Anal sphincter tone was normal and the perianal reflex is intact. Prostate is moderately enlarged, anodular and nontender digital inspection. No other abnormalities were noted on additional inspection of anal canal or distal rectal vault. The colonoscope was then inserted into the rectum under direct visualization advanced to the cecum. The cecum was identified by identification of ileocecal valve and cecal strap, and appendiceal orifice. Photographic documentation was obtained. Careful inspection was made as the colonoscope was withdrawn. FINDINGS: The patient exhibited patchy areas of erythema present throughout the colon without ulceration, polyp formation or pseudo polyp formation. Areas of involvement were most prominent in the rectum and the cecum. The distal terminal ileum and ileocecal valve were unremarkable to inspection. ASSESSMENT: Pancolitis. The patient does report some improvement in diarrhea and his abdominal pain has subsided in the last 72 hours. I suspect most likely the patient has had infectious etiology that is resolving. We will see what happens on histopathology report. I will have him return to see me in 2 weeks. If he has exacerbation of diarrhea with abdominal pain, we will need stool cultures. We will hold off on this recommendation considering improvement in his clinical course. We then proceeded with EGD due to reported intermittent dysphagia. The patient was placed in left lateral decubitus position. The endoscope was inserted in the oral cavity and under direct visualization, the esophagus was intubated. The scope was passed down the esophagus through the stomach and second portion of the duodenum. Careful inspection was made as the endoscope was withdrawn. The patient tolerated the procedure well. FINDINGS: The esophagus was unremarkable. There was no evidence of rings, webs strictures, Howard's change or erosive esophagitis, intrinsic or extrinsic esophageal compression. Make a compression to blockage. The patient did have a small sliding hiatal hernia. The cardia, fundus, and antrum of the stomach were unremarkable. The pylorus, the pyloric channel, duodenal bulb and second portion of duodenum were unremarkable as well with normal villous pattern to gross inspection. ASSESSMENT: A small sliding hiatal hernia is present without evidence for esophagitis on gross inspection. This was otherwise normal EGD evaluation. The patient was reassured by today's findings. Thank you for the referral of this pleasant gentleman. Job ID: [id number] DocumentID: [id number] Dictated Date: 06/20/2017 12:05:56 Parachute Marker Date: 06/20/2017 23:57:58 Dictated By: MIGNON PADILLA MD
== END 2017-06-20 11:10 | disposition home or self-care (01) ==
LOC: ENDO 07:20
PROVIDERS: ATTEND Internal Medicine
DX: K51.00 Ulcerative (chronic) pancolitis without complications (principal); K21.9 Gastro-esophageal reflux disease without esophagitis; K44.9 Diaphragmatic hernia without obstruction or gangrene; I25.10 Atherosclerotic heart disease of native coronary artery without angina pectoris; I10 Essential (primary) hypertension; E78.5 Hyperlipidemia, unspecified; Z86.010 Personal history of colon polyps; Z79.02 Long term (current) use of antithrombotics/antiplatelets; Z79.899 Other long term (current) drug therapy; Z95.5 Presence of coronary angioplasty implant and graft

== ENCOUNTER → 2017-07-17 | Outpatient (CLI) | payer MEDICARE ==
[2017-07-17 16:00] LABS: ALBUMIN 4.3 GM/DL (3.2-4.5); CALCIUM 9.8 MG/DL (8.5-10.1); CREATININE SERUM 1.38 MG/DL (0.60-1.30); PHOSPHORUS 3.5 MG/DL (2.3-4.7); POTASSIUM 4.4 MMOL/L (3.6-5.0)
== END ==
LOC: LAB 15:15
PROVIDERS: ATTEND Internal Medicine Nephrology
DX: I12.9 Hypertensive chronic kidney disease with stage 1 through stage 4 chronic kidney disease, or unspecified chronic kidney disease (principal); N18.4 Chronic kidney disease, stage 4 (severe); D64.9 Anemia, unspecified
CPT/HCPCS: 36415; 80069

== ENCOUNTER → 2017-07-23 | Outpatient (CLI) | payer MEDICARE ==
--- NOTE | 2017-07-23 11:41 | Diagnostic Imaging Report ---
Procedure: Bilateral renal ultrasound. Indication: Chronic kidney disease. Comparison: There are no prior renal ultrasound examinations available for comparison. Findings: Both kidneys were identified. The right kidney measures 11.6 x 5.6 x 4.9 cm while the left is estimated to be 9.7 x 6.1 x 4.2 cm. There is no evidence for a solid renal mass involving either kidney. There is a 3.1 x 3.0 x 2.6 cm cyst along the superior pole of the left kidney. This finding was also evident on the prior CT as status post exam of 11/02/2018 and does not seem to have changed significantly. The renal cortices are normal in thickness and echogenicity. The previous CT exam did note a minute nonobstructive calculi within the left kidney. That calculus cannot be identified on this study. The urinary bladder is only partially filled and consequently not well evaluated. There is no obvious bladder abnormality evident. Both ureteral jets were noted. Impression: 1. There is no evidence for a solid renal mass or for acute abnormality of either kidney. 2. The renal cortices are normal in thickness and echogenicity. 3. There is a benign-appearing 3 CM cyst along the superior pole of the left kidney. 4. There is no obvious bladder abnormality evident. Dictated by: Dictated on workstation # [id number]
== END ==
LOC: RAD 09:07
PROVIDERS: ATTEND Internal Medicine Nephrology
DX: R91.1 Solitary pulmonary nodule (principal); I12.9 Hypertensive chronic kidney disease with stage 1 through stage 4 chronic kidney disease, or unspecified chronic kidney disease; N18.4 Chronic kidney disease, stage 4 (severe); D64.9 Anemia, unspecified
CPT/HCPCS: 76770

== ENCOUNTER → 2017-10-28 | Outpatient (CLI) | payer MEDICARE ==
[2017-10-28 10:36] LABS: BASOPHILS % (AUTO) 0 % (0-10); BILIRUBIN,URINE NEGATIVE (NEGATIVE); CLARITY,URINE CLEAR; COLOR,URINE YELLOW; EOSINOPHILS # (AUTO) 0.1 10^3/uL (0.0-0.3); EOSINOPHILS % (AUTO) 1 % (0-10); GLUCOSE, URINE (UA) NEGATIVE (NEGATIVE); HEMATOCRIT 37 % (40-54); HEMOGLOBIN 12.9 G/DL (13.3-17.7); KETONES,URINE NEGATIVE (NEGATIVE); LEUKOCYTE ESTERASE ,URINE NEGATIVE (NEGATIVE); LYMPHOCYTES # (AUTO) 1.2 X 10^3 (1.0-4.0); LYMPHOCYTES % (AUTO) 18 % (12-44); MEAN CORPUSCULAR HEMOGLOBIN 34 PG (25-34); MEAN CORPUSCULAR HGB CONC 35 G/DL (32-36); MEAN CORPUSCULAR VOLUME 97 FL (80-99); MEAN PLATELET VOLUME 10.2 FL (7.4-10.4); MONOCYTES # (AUTO) 0.7 X 10^3 (0.0-1.0); MONOCYTES % (AUTO) 11 % (0-12); NEUTROPHILS # (AUTO) 4.7 X 10^3 (1.8-7.8); NEUTROPHILS % (AUTO) 70 % (42-75); NITRITE,URINE NEGATIVE (NEGATIVE); PH,URINE 5 (5-9); PLATELET COUNT 230 10^3/uL (130-400); PROTEIN,URINE NEGATIVE (NEGATIVE); RED BLOOD COUNT 3.79 10^6/uL (4.35-5.85); RED CELL DISTRIBUTION WIDTH 12.2 % (10.0-14.5); UROBILINOGEN,URINE NORMAL (NORMAL); WHITE BLOOD COUNT 6.8 10^3/uL (4.3-11.0)
[2017-10-28 10:45] LABS: BACTERIA,URINE NEGATIVE /HPF; RBC,URINE RARE /HPF
[2017-10-28 11:02] LABS: ALBUMIN 4.2 GM/DL (3.2-4.5); CALCIUM 9.7 MG/DL (8.5-10.1); CREATININE SERUM 1.6 MG/DL (0.60-1.30); MAGNESIUM 1.5 MG/DL (1.8-2.4); PHOSPHORUS 2.6 MG/DL (2.3-4.7); POTASSIUM 4.1 MMOL/L (3.6-5.0)
== END ==
LOC: LAB 09:57
PROVIDERS: ATTEND Internal Medicine Nephrology
DX: I12.9 Hypertensive chronic kidney disease with stage 1 through stage 4 chronic kidney disease, or unspecified chronic kidney disease (principal); N18.4 Chronic kidney disease, stage 4 (severe); D64.9 Anemia, unspecified
CPT/HCPCS: 36415; 80069; 81000; 82306; 82570; 83735; 83970; 84156; 84550; 85025

== ENCOUNTER → 2018-02-19 | Outpatient (CLI) | payer MEDICARE ==
[2018-02-19 12:56] LABS: BASOPHILS % (AUTO) 0 % (0-10); EOSINOPHILS # (AUTO) 0.2 10^3/uL (0.0-0.3); EOSINOPHILS % (AUTO) 2 % (0-10); HEMATOCRIT 39 % (40-54); HEMOGLOBIN 12.8 G/DL (13.3-17.7); LYMPHOCYTES # (AUTO) 1.3 X 10^3 (1.0-4.0); LYMPHOCYTES % (AUTO) 17 % (12-44); MEAN CORPUSCULAR HEMOGLOBIN 33 PG (25-34); MEAN CORPUSCULAR HGB CONC 33 G/DL (32-36); MEAN CORPUSCULAR VOLUME 100 FL (80-99); MONOCYTES # (AUTO) 0.7 X 10^3 (0.0-1.0); MONOCYTES % (AUTO) 10 % (0-12); NEUTROPHILS # (AUTO) 5.5 X 10^3 (1.8-7.8); NEUTROPHILS % (AUTO) 71 % (42-75); PLATELET COUNT 256 10^3/uL (130-400); RED BLOOD COUNT 3.88 10^6/uL (4.35-5.85); RED CELL DISTRIBUTION WIDTH 12.2 % (10.0-14.5); WHITE BLOOD COUNT 7.7 10^3/uL (4.3-11.0)
[2018-02-19 13:01] LABS: BILIRUBIN,URINE NEGATIVE (NEGATIVE); CLARITY,URINE SLIGHTLY CLOUDY; COLOR,URINE YELLOW; GLUCOSE, URINE (UA) NEGATIVE (NEGATIVE); KETONES,URINE NEGATIVE (NEGATIVE); LEUKOCYTE ESTERASE ,URINE 1+ (NEGATIVE); NITRITE,URINE NEGATIVE (NEGATIVE); PH,URINE 5 (5-9); PROTEIN,URINE 1+ (NEGATIVE); UROBILINOGEN,URINE NORMAL (NORMAL)
[2018-02-19 13:16] LABS: BACTERIA,URINE TRACE /HPF; RBC,URINE 0-2 /HPF; SQUAMOUS EPITHELIAL CELL,UR 0-2 /HPF; WBC,URINE 0-2 /HPF
[2018-02-19 13:18] LABS: ALBUMIN 4.1 GM/DL (3.2-4.5); CALCIUM 9.6 MG/DL (8.5-10.1); CREATININE SERUM 1.37 MG/DL (0.60-1.30); MAGNESIUM 1.6 MG/DL (1.8-2.4); PHOSPHORUS 3.1 MG/DL (2.3-4.7); POTASSIUM 3.8 MMOL/L (3.6-5.0); URIC ACID 6.6 MG/DL (2.6-7.2)
== END ==
LOC: LAB 12:41
PROVIDERS: ATTEND Internal Medicine Nephrology
DX: I12.9 Hypertensive chronic kidney disease with stage 1 through stage 4 chronic kidney disease, or unspecified chronic kidney disease (principal); N18.3 Chronic kidney disease, stage 3 (moderate); D64.9 Anemia, unspecified; E79.0 Hyperuricemia without signs of inflammatory arthritis and tophaceous disease
CPT/HCPCS: 36415; 80069; 81000; 82570; 83735; 84156; 84550; 85025

== ENCOUNTER → 2018-08-10 | Outpatient (CLI) | payer MEDICARE ==
[2018-08-10 13:46] LABS: BASOPHILS % (AUTO) 0 % (0-10); EOSINOPHILS # (AUTO) 0.1 10^3/uL (0.0-0.3); EOSINOPHILS % (AUTO) 2 % (0-10); HEMATOCRIT 38 % (40-54); HEMOGLOBIN 12.2 G/DL (13.3-17.7); LYMPHOCYTES # (AUTO) 1.3 X 10^3 (1.0-4.0); LYMPHOCYTES % (AUTO) 16 % (12-44); MEAN CORPUSCULAR HEMOGLOBIN 32 PG (25-34); MEAN CORPUSCULAR HGB CONC 32 G/DL (32-36); MEAN CORPUSCULAR VOLUME 100 FL (80-99); MEAN PLATELET VOLUME 9.2 FL (7.4-10.4); MONOCYTES % (AUTO) 13 % (0-12); NEUTROPHILS # (AUTO) 5.8 X 10^3 (1.8-7.8); NEUTROPHILS % (AUTO) 70 % (42-75); PLATELET COUNT 314 10^3/uL (130-400); RED CELL DISTRIBUTION WIDTH 12.7 % (10.0-14.5); WHITE BLOOD COUNT 8.3 10^3/uL (4.3-11.0)
[2018-08-10 13:53] LABS: BILIRUBIN,URINE NEGATIVE (NEGATIVE); CLARITY,URINE CLEAR; COLOR,URINE YELLOW; GLUCOSE, URINE (UA) NEGATIVE (NEGATIVE); KETONES,URINE NEGATIVE (NEGATIVE); LEUKOCYTE ESTERASE ,URINE 1+ (NEGATIVE); NITRITE,URINE NEGATIVE (NEGATIVE); PH,URINE 6 (5-9); PROTEIN,URINE NEGATIVE (NEGATIVE); UROBILINOGEN,URINE NORMAL (NORMAL)
[2018-08-10 14:06] LABS: ALBUMIN 3.9 GM/DL (3.2-4.5); CALCIUM 9.5 MG/DL (8.5-10.1); CREATININE SERUM 1.41 MG/DL (0.60-1.30); MAGNESIUM 1.6 MG/DL (1.8-2.4); PHOSPHORUS 2.1 MG/DL (2.3-4.7); POTASSIUM 4.3 MMOL/L (3.6-5.0)
[2018-08-10 14:30] LABS: BACTERIA,URINE NEGATIVE /HPF; WBC,URINE RARE /HPF
== END ==
LOC: LAB 13:20
PROVIDERS: ATTEND Internal Medicine Nephrology
DX: N18.3 Chronic kidney disease, stage 3 (moderate) (principal); I12.9 Hypertensive chronic kidney disease with stage 1 through stage 4 chronic kidney disease, or unspecified chronic kidney disease; R31.29 Other microscopic hematuria; E21.1 Secondary hyperparathyroidism, not elsewhere classified
CPT/HCPCS: 36415; 80069; 81000; 82306; 82570; 83735; 83970; 84156; 85025

== ENCOUNTER → 2018-09-01 | Outpatient (CLI) | payer MEDICARE ==
[2018-09-01 15:07] LABS: BILIRUBIN,URINE NEGATIVE (NEGATIVE); CLARITY,URINE CLEAR; COLOR,URINE YELLOW; GLUCOSE, URINE (UA) NEGATIVE (NEGATIVE); KETONES,URINE NEGATIVE (NEGATIVE); LEUKOCYTE ESTERASE ,URINE 1+ (NEGATIVE); NITRITE,URINE NEGATIVE (NEGATIVE); PH,URINE 6 (5-9); PROTEIN,URINE NEGATIVE (NEGATIVE); UROBILINOGEN,URINE NORMAL (NORMAL)
[2018-09-01 15:22] LABS: ALBUMIN 4.1 GM/DL (3.2-4.5); CALCIUM 9.5 MG/DL (8.5-10.1); CREATININE SERUM 1.83 MG/DL (0.60-1.30); PHOSPHORUS 3.3 MG/DL (2.3-4.7); POTASSIUM 4.5 MMOL/L (3.6-5.0)
[2018-09-01 15:25] LABS: BACTERIA,URINE TRACE /HPF; HYALINE CASTS, URINE 25-50 /LPF; SQUAMOUS EPITHELIAL CELL,UR RARE /HPF
== END ==
LOC: LAB 14:28
PROVIDERS: ATTEND Internal Medicine Nephrology
DX: I12.9 Hypertensive chronic kidney disease with stage 1 through stage 4 chronic kidney disease, or unspecified chronic kidney disease (principal); N18.3 Chronic kidney disease, stage 3 (moderate); R31.29 Other microscopic hematuria; E21.1 Secondary hyperparathyroidism, not elsewhere classified; E83.42 Hypomagnesemia
CPT/HCPCS: 36415; 80069; 81000; 83520; 85652; 86021; 86038; 86141; 86160; 86225; 86235; 86256; 86430

== ENCOUNTER → 2019-05-05 | Outpatient (CLI) | payer MEDICARE ==
[2019-05-05 14:06] LABS: HEMOGLOBIN 12.5 G/DL (13.3-17.7); WHITE BLOOD COUNT 9.2 10^3/uL (4.3-11.0)
[2019-05-05 14:07] LABS: MEAN PLATELET VOLUME 9.1 FL (7.4-10.4); RED CELL DISTRIBUTION WIDTH 12.7 % (10.0-14.5)
[2019-05-05 14:28] LABS: BILIRUBIN,TOTAL 0.4 MG/DL (0.1-1.0); CALCIUM 9.4 MG/DL (8.5-10.1); CREATININE SERUM 1.53 MG/DL (0.60-1.30); POTASSIUM 3.8 MMOL/L (3.6-5.0); TOTAL PROTEIN 7.3 GM/DL (6.4-8.2)
--- NOTE | 2019-05-05 14:57 | Diagnostic Imaging Report ---
PROCEDURE: CT head without contrast. TECHNIQUE: Multiple contiguous axial images were obtained through the brain without the use of intravenous contrast. Auto Exposure Controls were utilized during the CT exam to meet ALARA standards for radiation dose reduction. All CT scans use one or more of the following dose optimizing techniques: automated exposure control, MA and/or KvP adjustment based on patient size and exam type or iterative reconstruction. INDICATION: Right mouth droopiness and left eye visual problems. COMPARISON: No prior studies are available for comparison. FINDINGS: Ventricular size is normal. There are numerous masses within bilateral cerebral hemispheres. Small lesion in the left frontal lobe is identified measuring 11 mm with moderate amount of surrounding vasogenic edema. There is a mass in the left posterior temporoparietal lobe with hyperdensity along the periphery measuring 3.5 cm in size. A mass in the right occipital lobe measures 3.3 cm in AP diameter. Both of these demonstrate moderate amount of surrounding vasogenic edema. There is a probable mass in the right high frontoparietal lobe measuring 1.2 cm. No mass effect or midline shift is detected. Dominant lesions do show some peripheral hyperdensity which could represent lesional hemorrhage versus intrinsic hypercellularity. Cisterns are patent. The visualized paranasal sinuses are clear. 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 No significant mass effect or midline shift is identified. Further evaluation with MRI of the brain could be performed if clinically indicated. Dictated by: Dictated on workstation # [id number]
== END ==
LOC: RAD 13:48
PROVIDERS: ATTEND Family Medicine
DX: N18.9 Chronic kidney disease, unspecified (principal); H02.402 Unspecified ptosis of left eyelid; G93.89 Other specified disorders of brain; R29.810 Facial weakness; R53.1 Weakness
CPT/HCPCS: 36415; 70450; 80053; 85027

== ENCOUNTER 2019-05-06 10:19 | Observation (INO) | payer MEDICARE ==
[~2019-05-06] VITALS: Ht 167.7 cm; Wt 68.9 kg
[2019-05-06 10:35] VITALS: BP_SYST 175; BP_DIAS 74; BP_DIAS 75
--- NOTE | 2019-05-06 10:35 | NUR ---
JOEL HOUSE admitted to room 417-1, with an admitting diagnosis of CANCER, on 05/06/[address] WELLS, accompanied by SISTER.JOEL HOUSE introduced to surroundings, call light, bed controls, phone, TV, temperature control, lights, meal times, smoking policy, visitor policy, side rail policy, bathrooms and showers. Patient Rights given to patient in the handbook. JO[facility] HOUSE verbalizes understanding that [facility] is not responsible for the loss or damage to any personal effects or valuables that are kept in the patients posession during their hospitalization. The following Patient Care Plans were discussed with the PATIENT: Discharge Planning, TESTS AND PROCEDURES,PAIN, and TIMEING FOR TESTS. JOEL HOUSE verbalizes understanding of Interdisciplinary Patient Education.
[2019-05-06 11:54] VITALS: BP 177/77
--- NOTE | 2019-05-06 12:00 | NUR ---
DR. OBRIEN CALLED IN ORDERS WHICH HAVE BEEN POUT IN. HE WISHES TP CONSULT DR. CODY; MAKE SURE CT KNOWS TO USE LOW DOSE CONTRAST FOR CT; START FLUIS AND MEDICATION ORDERED.
[2019-05-06] MEDS ORDERED: DEXAMETHASONE 4 MG/ML SDV (DECADRON) IV NR (12:15)
[2019-05-06] MEDS ORDERED: NS IV 1000 ML 1,000 ML IV ONE (12:15)
[2019-05-06] MEDS ORDERED: CATHETER FLUSH 10 ML SYR IV PRN (12:45)
[2019-05-06] MEDS: NS IV 1000 ML 1,000 ML IV SCH ×2 (13:48→20:37)
[2019-05-06] MEDS ORDERED: NS 100 ML (IVPB) BAG IV ONE (14:30)
[2019-05-06] MEDS ORDERED: HOLD METFORMIN - RECEIVED CONTRAST 20 ML VIAL IV SCH (14:30)
[2019-05-06] MEDS ORDERED: IOHEXOL 350 MG/ML 100 ML (OMNIPAQUE 350) VIAL IV ONE (14:30)
--- NOTE | 2019-05-06 15:44 | Diagnostic Imaging Report ---
EXAMINATION: CT Chest, Abdomen and Pelvis with intravenous contrast. TECHNIQUE: Multiple contiguous axial images were obtained through the chest, abdomen and pelvis after the uneventful administration of intravenous contrast. All CT scans use one or more of the following dose optimizing techniques: automated exposure control, MA and/or KvP adjustment based on a patient size and exam type, or iterative reconstruction. HISTORY: Brain mass, evaluate for primary malignancy. COMPARISON: 11/02/2008 FINDINGS: There is no edema or pneumonia. No pleural effusion. No pneumothorax. There is a 4.5 x 5.6 mm mass in the right upper lobe in keeping with the lung malignancy. There is a 12 mm nodule in the left lower lobe. Lungs are mildly emphysematous. Heart size is normal. No pericardial effusion. Aorta is normal in caliber. There is no axillary or supraclavicular lymphadenopathy. There is no mediastinal lymphadenopathy. There are moderate coronary artery calcifications. The liver is normal without focal lesion. There is no biliary ductal dilation. Gallbladder is normal. Pancreas is normal. Spleen is normal. Adrenal glands are normal. There is a stable cyst in the upper pole of the left kidney. There is no hydronephrosis. Urinary bladder is normal. There are no dilated loops of large or small bowel. No obstruction or inflammation. No free fluid or air. No abdominal or pelvic lymphadenopathy. There is narrowing of the distal aorta and proximal common iliac arteries. There are no suspicious osseous lesions. IMPRESSION: 1. Large right upper lobe mass likely representing lung malignancy. 2. Left lower lobe nodule may represent metastatic disease. 3. No metastatic disease seen in the abdomen or pelvis. Dictated by: Dictated on workstation # [id number]
[2019-05-06 16:00] VITALS: BP 174/64
[2019-05-06 19:10] VITALS: BP 124/60
[2019-05-06] MEDS: DEXAMETHASONE 4 MG TAB (DECADRON) PO SCH (20:35)
--- NOTE | 2019-05-06 21:22 | History & Physical ---
History of Present Illness History of Present Illness Reason for visit/HPI Patient came to the office yesterday. Patient states he cannot read for the last few weeks. This came on suddenly. Letters would be mixed up. Patient had droopiness of the left upper eye and left side of mouth area Patient states she couldn't sing. Patient has history of renal insufficiency and sees a renal specialist. Previous surgery appendectomy and hernia. Patient lives alone. Patient has trouble driving and not steady and weaves when drives and this is new. Patient had a CAT scan of the head and shows metastatic cancer. Patient admitted to the hospital. Spoke to oncology before admissions and both agreed to admit patient to hospital. Patient states he smoked in the 60s for one year with cigarettes but never inhaled Date of Admission May 06, 2019 at 10:19 Time Seen by a Provider: 21:03 I consulted on this patient on 05/06/19 21:03 Attending Physician Gerson Villalobos DO Admitting Physician Paul Blackmon MD Consult Allergies and Home Medications Allergies Uncoded Allergies: IV DYE (Adverse Reaction, Intermediate, FELT WARM ALL OVER, THEN HOT, 01/15/12) FELT LIKE THINGS CLOSING IN OVER BODY Home Medications Atorvastatin Calcium 80 Mg Tablet, 80 MG PO DAILY, (Reported) Clopidogrel Bisulfate 75 Mg Tablet, 75 MG PO DAILY, (Reported) Cyanocobalamin (Vitamin B-12) 2,500 Mcg Tablet, 2,500 MCG PO DAILY, (Reported) Finasteride 5 Mg Tablet, 5 MG PO HS, (Reported) Furosemide 40 Mg Tablet, 40 MG PO DAILY, (Reported) Losartan/Hydrochlorothiazide 1 Each Tablet, 1 EACH PO DAILY, (Reported) Metoprolol Tartrate 50 Mg Tablet, 50 MG PO BID, (Reported) Pantoprazole Sodium 40 Mg Tablet.dr, 40 MG PO DAILY, (Reported) Potassium Gluconate 99 Mg Tablet, 99 MG PO DAILY, (Reported) Patient Home Medication List Home Medication List Reviewed: No Past Ahfxele-Hyblat-Mmyxjt Hx Past Med/Social Hx: Reviewed Nursing Past Med/Soc Hx Patient Social History Employed/Student: retired Alcohol Use: Denies Use Recreational Drug Use: No Physical Abuse Screen: No Sexual Abuse: No Recent Foreign Travel: No Contact w/other who traveled: No Recent Hopitalizations: No Recent Infectious Disease Expo: No Immunizations Up To Date Pediatric: No Date of Pneumonia Vaccine: May 06, 2017 Date of Influenza Vaccine: Feb 03, 2019 Seasonal Allergies Seasonal Allergies: No Past Medical History Surgeries: Appendectomy Cardiac: Heart Attack Reproductive: No Sexually Transmitted Disease: No HIV/AIDS: No Gastrointestinal: Chronic Diarrhea Musculoskeletal: Arthritis Loss of Vision: Bilateral Cancer: Skin Did You Recieve Any Treatments: Yes What Type of Treatment Did You: Surgical Intervention History of Blood Disorders: No Family History Abdominal aortic aneurysm BREST CANCER G8 SISTER KIDNEY CANCER G8 SISTER Seizure disorder G8 SISTER Stroke or transient ischemic attack in father Stroke or transient ischemic attack in mother Review of Systems Constitutional: weakness EENTM: other (Letters got mixed up when he read) Respiratory: no symptoms reported Cardiovascular: no symptoms reported Gastrointestinal: no symptoms reported Physical Exam Vital Signs Vital Signs - First Documented Capillary Refill : Less Than 3 Seconds Height, Weight, BMI Height: 5'6.00" Weight: 169lbs. 0.0oz. 76.419958oc; 24.49 BMI Method:Stated General Appearance: No Apparent Distress Eyes: Bilateral Eye Other (Left upper eyelid drooping) HEENT: Normal ENT Inspection Neck: Normal Inspection, Non Tender Respiratory: No Accessory Muscle Use, No Respiratory Distress, Decreased Breath Sounds Cardiovascular: Regular Rate, Rhythm, No Murmur Gastrointestinal: Non Tender, Soft Assessment/Plan Assessment and Plan Metastatic brain cancer. Lung cancer. Renal insufficiency. Hypertension. Admission Diagnosis Admission Status: Observation Clinical Quality Measures DVT/VTE Risk/Contraindication: Risk Factor Score Per Nursin RFS Level Per Nursing on Admit: 2=Moderate Contraindications-Pharm: Other *list below* GERSON VILLALOBOS DO May 06, 2019 21:22
[2019-05-06] MEDS ORDERED: MAGNESIUM 1 GM/100 ML IVPB 100 ML IV ONE (21:50)
[2019-05-06] MEDS ORDERED: ACETAMINOPHEN 325 MG TABLET ONE (21:51)
[2019-05-06] MEDS ORDERED: meTOprolol TARTRATE 25 MG (LOPRESSOR) TABLET ONE (22:41)
--- NOTE | 2019-05-06 23:23 | CONSULTATION REPORT ---
DATE OF SERVICE: 05/06/2019 REFERRING PHYSICIAN AND PRIMARY PHYSICIAN: Gerson Solis DO The patient is admitted to room 417. IMPRESSION: 1. An 83-year-old male with history of right facial droop and visual problems since few days. CT scan of the head showing multiple bilateral brain lesions with surrounding edema consistent with metastatic disease. 2. CT scan of the chest, abdomen and pelvis showing right upper lobe lung mass probably primary bronchogenic carcinoma. 3. Coronary artery disease with myocardial infarction in the past and on Plavix. RECOMMENDATIONS: 1. Admit the patient to the hospital and start him on dexamethasone 10 mg IV followed by 4 mg p.o. every 6 hours with food. 2. Discontinue Plavix. 3. Consult Dr. Teresa from pulmonary for bronchoscopy with transbronchial biopsy for tissue diagnosis. 4. Consult radiation oncology for palliative whole brain radiation therapy. 5. Once definitive diagnosis is available from the biopsy, further treatment recommendations can be made. BRIEF HISTORY: The patient is an 83-year-old male, who complained of decreasing visual acuity and jumbling of words when trying to read since the last month. Over the past few days, he noticed drooping on the right side of his face and went to his primary physician yesterday. CT scan of the head was done on an outpatient basis, which showed multiple enhancing lesions with surrounding edema bilaterally. As the patient lives alone and was driving, it was decided to admit him to the hospital for further evaluation and management. Oncology consultation was requested for concurrent management. The patient denied any history of falls. He has been taking Plavix because of previous history of coronary artery disease and an DC. Recently, he has been dropping pills every morning and not taking all of his medications as instructed. He is unsure when he took the last dose of Plavix. He denied any significant weight loss. Approximately a year ago, he was told he had renal dysfunction and was on a renal diet with some weight loss. No new bony aches or pains. No new lumps or masses. PAST MEDICAL HISTORY: Significant for hypertension, which is longstanding. Coronary artery disease with one DC in the past with no intervention. Questionable history of heart failure with fluid retention once and was started on diuretics, but the patient discontinued this more than a year ago. No documented history of COPD. No other major medical problems. PAST SURGICAL HISTORY: Include ruptured appendix at the age of 30 years requiring emergency appendectomy. Later on, he developed an incisional hernia requiring repair with mesh placement. SOCIAL HISTORY: The patient is and lives by himself. He does not have any children of his own. He has two nieces, who live close by and check on him. He gave history of smoking in the 1960s for a few years. He does give history of secondhand tobacco exposure at a young age as his father used to smoke. 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 Denied any alcohol or other recreational drug use. FAMILY HISTORY: Unremarkable. PHYSICAL EXAMINATION: GENERAL: Today showed elderly male, awake and oriented and answering questions fairly. VITAL SIGNS: His temperature was 36.8, pulse rate of 65, respirations 20, blood pressure 174/64 with oxygen saturation of 95% on room air. HEENT: Normocephalic, extraocular muscles intact, conjunctivae pink, oral mucosa moist. Minimal right facial droop. NECK: Supple, with no JVD. No cervical, supraclavicular or axillary lymphadenopathy palpable. CHEST: Symmetrical. LUNGS: Slightly diminished breath sounds bilaterally without any wheezes or rales. CARDIOVASCULAR: Regular in rate and rhythm. No murmurs or gallops heard. ABDOMEN: Soft, nontender with no hepatosplenomegaly or other masses palpable. EXTREMITIES: Showed no edema. NEUROLOGIC: Showed no focal motor deficits other than the mild right facial droop. LABORATORY DATA: CBC done yesterday showed WBC 9.2, hemoglobin 12.5 and platelet count of 337,000. Chemistry panel showed normal electrolytes. BUN was 32 and creatinine 1.53 with GFR 44 mL per minute. Nonfasting glucose was 108. Liver function studies were within normal limits. CT scan of the head done on 05/05/2019 showed numerous intracranial masses with surrounding vasogenic edema, most likely due to intracranial metastatic disease. No midline shift is identified. Large mass in the left posterior temporoparietal lobe with hyperdensity along the periphery measured 3.5 cm in size. Mass in the right occipital lobe measured 3.[address] scan of the chest, abdomen and pelvis today. CT scan of the chest showing a 4.5 x 5.6 cm mass in the right upper lobe posteriorly consistent with a lung malignancy. There is a 1.2 cm nodule in the left lower lobe. No significant lymphadenopathy noted in the chest. CT scan of the abdomen and pelvis was unremarkable with no evidence of metastatic disease. Thank you for allowing me to participate in this patient's care. I will follow the patient with you and make appropriate recommendations. Job ID: [id number] DocumentID: [id number] Dictated Date: 05/06/2019 17:50:37 Electric Sign Wirer Date: 05/06/2019 23:23:08 Dictated By: ANDRIA LIMON MD
[2019-05-07 00:37] VITALS: BP 147/56
[2019-05-07] MEDS ORDERED: ACETAMINOPHEN 325 MG TABLET PO PRN (02:00)
[2019-05-07 03:32] VITALS: BP 162/73
[2019-05-07] MEDS: DEXAMETHASONE 4 MG TAB (DECADRON) PO SCH ×2 (04:29)
[2019-05-07 05:10] LABS: HEMOGLOBIN 11.7 G/DL (13.3-17.7); MEAN PLATELET VOLUME 9.7 FL (7.4-10.4); RED CELL DISTRIBUTION WIDTH 12.6 % (10.0-14.5); WHITE BLOOD COUNT 8.2 10^3/uL (4.3-11.0)
[2019-05-07 05:35] LABS: BUN/CREATININE RATIO 28; CARBON DIOXIDE 20 MMOL/L (21-32); CHLORIDE 111 MMOL/L (98-107); CREATININE SERUM 1.07 MG/DL (0.60-1.30); GFR ESTIMATED > 60; GLUCOSE 132 MG/DL (70-105); MAGNESIUM 1.9 MG/DL (1.6-2.4); SODIUM 140 MMOL/L (135-145)
--- NOTE | 2019-05-07 07:59 | Progress Note ---
Subjective Time Seen by a Provider: 07:54 Subjective/Events-last exam Patient more alert today. Patient on Plavix and unable to have bronchoscopy today. 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 Objective Exam Vital Signs Date Time Temp Pulse Resp B/P (MAP) Pulse Ox O2 Delivery O2 Flow Rate FiO2 05/07/19 03:32 36.5 54 20 162/73 (102) 95 Room Air 05/07/19 00:37 36.3 63 20 147/56 (86) 95 Room Air 05/06/19 19:10 36.8 71 16 124/60 (81) 93 Room Air 05/06/19 16:00 36.8 65 20 174/64 (100) 95 Room Air 05/06/19 11:54 36.9 63 18 177/77 (110) 96 Room Air 05/06/19 10:35 36.6 71 18 175/75 (108) 97 Room Air 05/06/19 10:35 36.6 71 18 175/74 97 Room Air I & O 05/07/19 07:00 Intake Total 1300 ml Balance 1300 ml Capillary Refill : Less Than 3 SecondsLess Than 3 Seconds General Appearance: No Apparent Distress, WD/WN HEENT: Normal ENT Inspection Neck: Full Range of Motion Respiratory: No Accessory Muscle Use, No Respiratory Distress Cardiovascular: Regular Rate, Rhythm Gastrointestinal: non tender, soft Results Lab Laboratory Tests 05/07/19 04:20 Laboratory Tests 05/07/19 04:20: White Blood Count 8.2, Red Blood Count 3.69L, Hemoglobin 11.7L, Hematocrit 36L, Mean Corpuscular Volume 97, Mean Corpuscular Hemoglobin 32, Mean Corpuscular Hemoglobin Concent 33, Red Cell Distribution Width 12.6, Platelet Count 320, Mean Platelet Volume 9.7, Sodium Level 140, Potassium Level 4.0, Chloride Level 111H, Carbon Dioxide Level 20L, Anion Gap 9, Blood Urea Nitrogen 30H, Creatinine 1.07, Estimat Glomerular Filtration Rate > 60, BUN/Creatinine Ratio 28, Glucose Level 132H, Calcium Level 9.0, Magnesium Level 1.9 Assessment/Plan Assessment/Plan Assess & Plan/Chief Complaint Metastatic brain cancer. Lung cancer. Coronary artery disease. Clinical Quality Measures Admission Status Admission Dx Metastatic brain cancer. Lung cancer. Renal insufficiency. Hypertension. DVT/VTE Risk/Contraindication: Risk Factor Score Per Nursin RFS Level Per Nursing on Admit: 2=Moderate Contraindications-Pharm: Other *list below* MABEL VILLALOBOS DO May 07, 2019 07:59
[2019-05-07 08:00] VITALS: BP 182/64
[2019-05-07] MEDS: NS IV 1000 ML 1,000 ML IV SCH (08:16)
--- NOTE | 2019-05-07 10:41 | Pulmonary Consultation ---
History of Present Illness History of Present Illness Date Seen by Provider: May 07, 2019 Time Seen by Provider: 10:19 Date of Admission History of Present Illness 83yo with hx of CAD presented admitted secondary to change in speech, and facial droop. PT was found to have a lung mass on CT scan and multiple enhancing brain lesions. Denies wt loss. Dr. Gonsalez called me requesting bronchoscopy with EBUS. Pt has been on Plavix and last dose was 05/06. Allergies and Home Medications Allergies Uncoded Allergies: IV DYE (Adverse Reaction, Intermediate, FELT WARM ALL OVER, THEN HOT, 01/15/12) FELT LIKE THINGS CLOSING IN OVER BODY Home Medications Atorvastatin Calcium 80 Mg Tablet, 80 MG PO DAILY, (Reported) Clopidogrel Bisulfate 75 Mg Tablet, 75 MG PO DAILY, (Reported) Cyanocobalamin (Vitamin B-12) 2,500 Mcg Tablet, 2,500 MCG PO DAILY, (Reported) Finasteride 5 Mg Tablet, 5 MG PO HS, (Reported) Furosemide 40 Mg Tablet, 40 MG PO DAILY, (Reported) Losartan/Hydrochlorothiazide 1 Each Tablet, 1 EACH PO DAILY, (Reported) Metoprolol Tartrate 50 Mg Tablet, 50 MG PO BID, (Reported) Pantoprazole Sodium 40 Mg Tablet.dr, 40 MG PO DAILY, (Reported) Potassium Gluconate 99 Mg Tablet, 99 MG PO DAILY, (Reported) Past Gvargta-Msybat-Ogpaxk Hx Past Med/Social Hx: Reviewed Nursing Past Med/Soc Hx Patient Social History Alcohol Use: Denies Use Recreational Drug Use: No Recent Foreign Travel: No Contact w/Someone Who Travel: No Recent Infectious Disease Expo: No Recent Hopitalizations: No Immunizations Up To Date PED Vaccines UTD: No Date of Pneumonia Vaccine: May 06, 2017 Date of Influenza Vaccine: Feb 03, 2019 Seasonal Allergies Seasonal Allergies: No Past Medical History Surgeries: Yes (EXP LAP FOR BURST APPENDIX, RIGHT ING HERNIA) Appendectomy Respiratory: No Cardiac: Yes (HX HEART CATH, ASHD) Heart Attack Neurological: No Reproductive Disorders: No Sexually Transmitted Disease: No HIV/AIDS: No Gastrointestinal: Yes (ABD PAIN, WT LOSS) Chronic Diarrhea Musculoskeletal: No Arthritis Endocrine: No HEENT: No (BLURRED VISION/ DYSLEXIA) Loss of Vision: Bilateral Cancer: Yes (CUURENTLY, BRAIN CANCER) Skin Did You Recieve Any Treatments: Yes What Type of Treatment Did You: Surgical Intervention Psychosocial: No Integumentary: No Blood Disorders: No Family Medical History Abdominal aortic aneurysm BREST CANCER G8 SISTER KIDNEY CANCER G8 SISTER Seizure disorder G8 SISTER Stroke or transient ischemic attack in father Stroke or transient ischemic attack in mother Review of Systems Time Seen by Provider: 10:41 Constitutional: Weakness, Malaise; No: Fever, Chills, Sweats, Other Eyes: No: Pain, Vision change, Conjunctivae inflammation, Eyelid inflammation, Other, Redness ENT: No: Ear pain, Ear discharge, Nose pain, Nose discharge, Nose congestion, Mouth pain, Mouth swelling, Throat pain, Throat swelling, Other Respiratory: Cough, Dry, Shortness of breath, SOB with excertion; No: Wheezing, Hemoptysis, Pleuritic Pain, Sputum, Wheezing, Other Cardiovascular: No: Chest Pain, Palpitations, Orthopnea, Paroxysmal Noc. Dyspnea, Edema, Lt Headedness, Other Sepsis Event Evaluation Height, Weight, BMI Height: 5'6.00" Weight: 169lbs. 0.0oz. 76.123614zm; 24.49 BMI Method:Stated Exam Exam Vital Signs Date Time Temp Pulse Resp B/P (MAP) Pulse Ox O2 Delivery O2 Flow Rate FiO2 05/07/19 08:00 36.6 67 20 182/64 (103) 94 Room Air 05/07/19 03:32 36.5 54 20 162/73 (102) 95 Room Air 05/07/19 00:37 36.3 63 20 147/56 (86) 95 Room Air 05/06/19 19:10 36.8 71 16 124/60 (81) 93 Room Air 05/06/19 16:00 36.8 65 20 174/64 (100) 95 Room Air 05/06/19 11:54 36.9 63 18 177/77 (110) 96 Room Air 05/06/19 10:35 36.6 71 18 175/75 (108) 97 Room Air 05/06/19 10:35 36.6 71 18 175/74 97 Room Air I & O 05/07/19 06:59 Intake Total 1300 ml Balance 1300 ml Height & Weight Height: 5'6.00" Weight: 169lbs. 0.0oz. 76.690998zd; 24.49 BMI Method:Stated General Appearance: No Apparent Distress, WD/WN HEENT: Normal ENT Inspection Neck: Full Range of Motion Respiratory: No Accessory Muscle Use, No Respiratory Distress Cardiovascular: Regular Rate, Rhythm Capillary Refill: Less Than 3 Seconds Gastrointestinal: non tender, soft Neurologic/Psychiatric: Alert Skin: Normal Color, Warm/Dry Lymphatic: No Adenopathy Results Lab Laboratory Tests 05/07/19 04:20 Assessment/Plan Assessment/Plan Lung mass -WIll do bronchoscopy with EBUS next 05/12. Brain mets -Oncology following -Dexamethasone CAD -Plavix is on hold for bronch HAILE TELLEZ DO May 07, 2019 10:41
[2019-05-07 12:00] VITALS: BP 161/76
--- NOTE | 2019-05-07 12:09 | Consultation ---
History of Present Illness History of Present Illness Patient Consulted On(cleve/time) 05/07/19 11:40 Date Seen by Provider: May 07, 2019 Time Seen by Provider: 10:00 Reason for Visit: Multiple brain lesions from probable lung cancer primary History of Present Illness * Mr. Barrett is an 83 y/o white male [place] resident who presented to Dr. Villalobos on 05/05/19 with complaints of visual disturbance for several days ("couldn't read, words were like I had dyslexia") and right sided facial drooping. He also reports vocal changes - weak with hoarseness - that [facility] the [facility] few weeks. Left sided frontal headaches but more of "a burning sensation above left eye" were also reported. He admits to increased fatigue and weakness. He stopped driving a few days ago because he didn't feel right and didn't want to hurt anyone on the road. * 05/05/19 CT Head w/o (AVCP) as outpatient: Noted numerous intracranial lesions with surrounding vasogenic edema consistent with metastatic disease. No significant mass effect or midline shift. * 05/06/19 He was admitted to [facility] under the care of Dr. Villalobos for further evaluation and management. * 05/06/19 CT C/A/P: Identified a large RUL lung mass measuring 4.5 x 5.6 mm along with a 12 mm noduled in the LLL; likely representing lung malignancy. * Medical oncologist, Dr. Andria Gonsalez, consulted. - initiate decadron - discontinue plavix - pulmonary referral for bronch w/ biopsy for tissue diagnosis - rad onc referral for palliative brain xrt - once pathologic diagnosis made will make further treatment recommendations * 05/07/[address] Teresa - continue hold on Plavix; plan for bronchoscopy on Friday 05/12 * A radiation oncology consult was made for evaluation and discussion of whole brain xrt; thus, my visit with the patient today. * Symptoms have improved with decadron. Allergies and Home Medications Allergies Uncoded Allergies: IV DYE (Adverse Reaction, Intermediate, FELT WARM ALL OVER, THEN HOT, 01/15/12) FELT LIKE THINGS CLOSING IN OVER BODY Home Medications Atorvastatin Calcium 80 Mg Tablet, 80 MG PO DAILY, (Reported) Cyanocobalamin (Vitamin B-12) 2,500 Mcg Tablet, 2,500 MCG PO DAILY, (Reported) Finasteride 5 Mg Tablet, 5 MG PO HS, (Reported) Furosemide 40 Mg Tablet, 40 MG PO DAILY, (Reported) Losartan/Hydrochlorothiazide 1 Each Tablet, 1 EACH PO DAILY, (Reported) Metoprolol Tartrate 50 Mg Tablet, 50 MG PO BID, (Reported) Pantoprazole Sodium 40 Mg Tablet.dr, 40 MG PO DAILY, (Reported) Potassium Gluconate 99 Mg Tablet, 99 MG PO DAILY, (Reported) Patient Home Medication List Home Medication List Reviewed: Yes Past Udgkown-Sxqhob-Ffkhbo Hx Past Med/Social Hx: Reviewed Nursing Past Med/Soc Hx Patient Social History Alcohol Use: Denies Use Recreational Drug Use: No Smoking Status: Former Smoker (history of smoking flavored cigarettes from [place] "mostly chewed") 2nd Hand Smoke Exposure: Yes (States also probable asbestos exposure given his age) Recent Foreign Travel: No Contact w/Someone Who Travel: No Recent Infectious Disease Expo: No Recent Hopitalizations: No Immunizations Up To Date PED Vaccines UTD: No Date of Pneumonia Vaccine: May 06, 2017 Date of Influenza Vaccine: Feb 03, 2019 Seasonal Allergies Seasonal Allergies: No Past Medical History Surgeries: Yes (EXP LAP FOR BURST APPENDIX, RIGHT ING HERNIA) Appendectomy Respiratory: No Cardiac: Yes (HX HEART CATH, ASHD) Heart Attack (on Plavix) Neurological: No Reproductive Disorders: No Sexually Transmitted Disease: No HIV/AIDS: No Gastrointestinal: Yes (ABD PAIN, WT LOSS) Chronic Diarrhea Musculoskeletal: No Arthritis Endocrine: No HEENT: No (BLURRED VISION/ DYSLEXIA) Loss of Vision: Bilateral Cancer: Yes (CUURENTLY, BRAIN CANCER) Skin Did You Recieve Any Treatments: Yes What Type of Treatment Did You: Surgical Intervention Psychosocial: No Integumentary: No Blood Disorders: No Family Medical History Abdominal aortic aneurysm BREST CANCER G8 SISTER KIDNEY CANCER G8 SISTER Seizure disorder G8 SISTER Stroke or transient ischemic attack in father Stroke or transient ischemic attack in mother Single. Patient reports he was engaged a few times but never . Lives by himself in [place], [place]. No children. Has two nieces, who live close by that have close contact with him. Retired at the age of 62. 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 He received his bachelors and masters at [employer] then went on for his PhD. 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 Last position was at [employer] in [place]. Review of Systems-General Constitutional: weakness (improved with steroid) EENTM: blurred vision, double vision, eye pain (burning above left eye), hoarse ness, other (symptoms improved with decadron) Respiratory: no symptoms reported Cardiovascular: no symptoms reported Gastrointestinal: no symptoms reported Musculoskeletal: joint pain Psychiatric/Neurological: See HPI, Headache, Other (right sided facial drooping - resolved now) All Other Systems Reviewed Negative Unless Noted: Yes Physical Exam-General Problems Physical Exam Vital Signs Vital Signs - First Documented Capillary Refill : Less Than 3 SecondsLess Than 3 Seconds General Appearance: WD/WN, no apparent distress Eyes: Bilateral Eye PERRL, Bilateral Eye EOMI HEENT: other (own teeth) Neck: non-tender, full range of motion Respiratory: no respiratory distress Extremities: normal range of motion Neurologic/Psychiatric: family physician II-XII nml as tested, no motor/sensory deficits, alert, normal mood/affect, oriented x 3 Skin: normal color Assessment/Plan Assessment/Plan Admission Diagnosis/Plan 1) Numerous brain lesions with vasogenic edema - symptoms improved with decadron 2) RUL lung mass 3) CAD w/ NH in the past - has been on Plavix * Plavix on hold - bronchoscopy scheduled for 05/12/19 for pathologic diagnosis 1) The patient was offered a two week course of palliative whole brain radiotherapy to stop growth/ shrink tumors and preserve neurologic function. Med onc to taper decadron. 2) We would attempt to deliver 30 Gy / 10 fxs utilizing a standard radiotherapy treatment technique. 3) The acute toxicities, long-term complications, logistics and hoped for benefits were explained in detail. He was given a hand out on brain radiotherapy. He may experience some fatigue, scalp irritation, and hair loss. 4) All questions were answered to the patient's satisfaction. He was told if his niece(s) would like to discuss his xrt to let us know. 5) A treatment planning ct simulation to be performed today. 6) We will initiate his course of palliative whole brain xrt on Friday05/10/19. 7) Dk Ross LCSW, has been contacted to address any social issues the patient may have. Admission Status: Inpatient Order (span 2 midnights) Clinical Quality Measures DVT/VTE Risk/Contraindication: Risk Factor Score Per Nursin RFS Level Per Nursing on Admit: 2=Moderate Contraindications-Pharm: Other *list below* Copy Copies To 1: ANDRIA GONSALEZ Copies To 2: MABEL VILLALOBOS DUANE E MD May 07, 2019 12:09
[2019-05-07 12:15] VITALS: BP 161/76
--- NOTE | 2019-05-07 12:48 | NUR ---
"RD ASSESSMENT PMHx: renal insufficiency; CO; CA(lung, brain) PT INTERACTION: Pt was awake and pleasant during consult for MST score. Pt states current appetite is better thant it was 2 days ago, where it was poor. Note PO intake of 100% x1meal, per chart review. Pt states following a regular diet at home and has no issues with chewing/swallowing food. Pt states no recent issues with n/v/c/d at this time, and that his last BM was 05/06. Note pt not currently on bowel regimen, per chart review. Pt states he probably has lost a little bit of weight d/t poor appetite over the last couple of days. Note unable to determine recent wt hx, per chart review. Given pt's PO intake and wt hx, pt does not meet criteria for malnutrition per ASPEN guidelines. ABNORMAL NUTRITION-RELATED LAB VALUES LOW: HIGH: Cl 111; BUN 30; glu 132 Est. kcal needs: 4435-0911 kcal | 25-30 kcal/kg Est. Pro needs: 55-69 g Pro | 0.8-1.0 g Pro/kg PES STATEMENT: Given pt's PO intake, no nutrition diagnosis at this time (NO-1.1) INTERVENTION: Continue with current diet order of Regular diet. Will continue to follow and reassess as pt needs and status change. MONITOR/EVALUATE: PO Intake; Plan of Care; Hydration Status; Weight Status; Lab Values Dk Simon, MS, RD, LD"
--- NOTE | 2019-05-07 13:28 | NUR ---
Met with pt and his niece who is also employed here as a PRN nurse and lives only blocks away from patient in [place], [place]. Pt expressed worry about finances of his continued care. He has a Managed Medicare Plan from [facility] and unsure of its coverage. Discussed options and he states that his nieces and sisters are very close and will stay with them if necessary but prefers to return home. His niece is agreeable and will be checking with him intermittently.[facility] and will provide follow-up.
--- NOTE | 2019-05-07 18:19 | NUR ---
dr gonzalez contacted this RN to order patient a medication since he had already DCD. this RN contacted family and patient to verify what pharmacy to call the medication into. patients number was disconnected and emergency contacts did not answer their phone. medication will have to be ordered at follow up appointment wednesday 05/10
--- NOTE | 2019-05-10 07:00 | Clinic Account Progress/Dx ---
Clinic Account Progress/Dx DIAGNOSIS: Time Seen by Provider: 06:59 Metastatic brain cancer. Large right upper lobe mass. Lung cancer. Hypertension. Renal insufficiency. Left lower lobe nodule. Coronary artery disease. Previous myocardial infarction MABEL VILLALOBOS DO May 10, 2019 07:00
== END 2019-05-07 12:15 | disposition home or self-care (01) ==
LOC: 4TH 10:19
PROVIDERS: ADMIT Family Medicine; ATTEND Family Medicine
DX: C79.31 Secondary malignant neoplasm of brain (principal); C34.11 Malignant neoplasm of upper lobe, right bronchus or lung; N28.9 Disorder of kidney and ureter, unspecified; I10 Essential (primary) hypertension; I25.2 Old myocardial infarction; K52.9 Noninfective gastroenteritis and colitis, unspecified; M19.91 Primary osteoarthritis, unspecified site; H54.8 Legal blindness, as defined in USA; G93.6 Cerebral edema; I25.10 Atherosclerotic heart disease of native coronary artery without angina pectoris; Z87.891 Personal history of nicotine dependence; Z85.828 Personal history of other malignant neoplasm of skin; Z79.899 Other long term (current) drug therapy; Z79.01 Long term (current) use of anticoagulants
CPT/HCPCS: 36415; 71260; 74177; 77290; 77334; 80048; 83735; 85027; 99204; G0378

== ENCOUNTER → 2019-05-11 | Outpatient (CLI) | payer MEDICARE | END | disposition home or self-care (01) | LOC: PREOP 05:40 | PROVIDERS: ATTEND Internal Medicine Critical Care Medicine | DX: Z01.818 Encounter for other preprocedural examination (principal) ==

== ENCOUNTER 2019-05-26 07:50 | Outpatient (CLI) | payer MEDICARE ==
[2019-05-26] VITALS (12 sets, daily range): BP systolic 114–169; BP diastolic 53–78
[~2019-05-26] VITALS: Ht 170.2 cm; Wt 70.9 kg
[2019-05-26] MEDS ORDERED: NS IV 1000 ML 1,000 ML IV STA (08:14)
[2019-05-26] MEDS ORDERED: fentaNYL INJECTION 100 MCG/2 ML AMP IVP ONE (08:15)
[2019-05-26] MEDS ORDERED: LIDOCAINE 1% INJ 20 ML 20 ML VIAL INJ ONE (08:15)
[2019-05-26] MEDS ORDERED: MIDAZOLAM 2 MG/2 ML (VERSED) VIAL IVP ONE (08:15)
[2019-05-26 08:36] LABS: HEMOGLOBIN 14.3 G/DL (13.3-17.7); MEAN PLATELET VOLUME 10.2 FL (7.4-10.4); RED CELL DISTRIBUTION WIDTH 14.2 % (10.0-14.5); WHITE BLOOD COUNT 14.8 10^3/uL (4.3-11.0)
[2019-05-26 08:42] LABS: INR 0.9 (0.8-1.4); PROTHROMBIN TIME PATIENT 12.6 SEC (12.2-14.7)
[2019-05-26] MEDS ORDERED: CLOP75TA69 PO (09:26)
[2019-05-26] MEDS ORDERED: DEXA4TAB PO (09:26)
[2019-05-26] MEDS ORDERED: HYDROcodone/APAP 5 MG/325 MG (LORTAB) TAB PO PRN (10:30)
--- NOTE | 2019-05-26 11:06 | Diagnostic Imaging Report ---
INDICATION: Right lung mass. TECHNIQUE: All CT scans use one or more of the following dose optimizing techniques: automated exposure control, MA and/or KvP adjustment based on a patient size and exam type, or iterative reconstruction. FINDINGS: Patient was brought to the CT suite and placed on table in prone position. Axial imaging through the chest was performed to evaluate appropriate entry site. The right posterior thorax was then prepped and draped in the usual sterile fashion. A small amount of 1% lidocaine was utilized for local anesthesia. 20-gauge coaxial Temno needle was advanced and placed with its tip along the margin of the soft tissue mass in the right upper lobe. Four core biopsies were obtained. Needle was removed during the injection of a blood patch. Follow-up imaging shows no complicating features. No pneumothorax is seen. Procedure was performed utilizing conscious sedation with radiology nursing and constant patient monitoring. Patient was administered a total of 50 mcg of fentanyl intravenously and 1 mg of Versed intravenously. Total procedure time was 13 minutes. IMPRESSION: Successful CT-guided biopsy of the right upper lobe lung mass, utilizing conscious sedation. Pathology results are currently pending. Dictated by: Dictated on workstation # [id number]
--- NOTE | 2019-05-26 12:04 | Diagnostic Imaging Report ---
INDICATION: Right lung biopsy. TIME OF EXAM: 11:48 a.m. FINDINGS: Expiratory radiograph of the chest was obtained. A lobulated mass in the right upper lobe is again noted. No pneumothorax is seen, status post right lung biopsy. IMPRESSION: No evidence of pneumothorax. Dictated by: Dictated on workstation # [id number]
== END 2019-05-26 13:00 | disposition home or self-care (01) ==
LOC: SDC 07:50
PROVIDERS: ATTEND Internal Medicine Hematology & Oncology
DX: R91.8 Other nonspecific abnormal finding of lung field (principal)
CPT/HCPCS: 36415; 71045; 77012; 85027; 85610; 85730; 88305; 88341; 88342; 88344; 99156

== ENCOUNTER → 2019-06-08 | Outpatient (CLI) | payer MEDICARE ==
[~2019-06-08] MED LIST changes: +CLOP75TA69 PO; +DEXA4TAB PO
--- NOTE | 2019-06-08 15:32 | Diagnostic Imaging Report ---
INDICATION: Metastatic lung cancer. TECHNIQUE: Anterior and posterior body planar imaging was performed 3 hours after administration of 27 mCi of technetium 99m MDP. FINDINGS: There is homogeneous uptake of isotope throughout the axial and appendicular skeleton. There are no focal areas of increased or decreased activity. Visualized uptake within the kidneys bilaterally with excretion the urinary bladder. IMPRESSION: Normal whole body bone scan. Dictated by: Dictated on workstation # [id number]
== END ==
LOC: CARD 10:48
PROVIDERS: ATTEND Internal Medicine Hematology & Oncology
DX: C34.90 Malignant neoplasm of unspecified part of unspecified bronchus or lung (principal)
CPT/HCPCS: 78306

== ENCOUNTER 2019-06-09 05:34 | Outpatient (CLI) | payer MEDICARE ==
[~2019-06-09] VITALS: Ht 167.7 cm; Wt 70.9 kg
== END 2019-06-09 15:39 | disposition home or self-care (01) ==
LOC: PREOP 05:34
PROVIDERS: ATTEND Surgery
DX: Z01.818 Encounter for other preprocedural examination (principal)

== ENCOUNTER 2019-06-11 07:45 | Day surgery (SDC) | payer MEDICARE ==
[2019-06-11] VITALS (7 sets, daily range): BP systolic 107–135; BP diastolic 44–59
[~2019-06-11] VITALS: Ht 167.7 cm; Wt 70.9 kg
[~2019-06-11 07:45] MED LIST changes: +0.9% SODIUM CHLORIDE PF INJ 20 ML VIAL ONE; +BUP/EPI 0.5% 1:200,000 (SENSORCAINE) 30 ML VIAL ONE; +HEParin (CENTRAL IV FLUSH) 500 UNIT/5 ML SYR ONE
[2019-06-11] MEDS ORDERED: LACTATED RINGERS 1,000 ML IV PRN (07:56)
[2019-06-11] MEDS ORDERED: ceFAZolin 2 GM/50 ML NS 50 ML IV ONE (08:00)
[2019-06-11] MEDS ORDERED: PROPOFOL INJECTION 50 ML IV ONE (08:14)
[2019-06-11] MEDS ORDERED: CATHETER FLUSH 10 ML SYR IV PRN (08:15)
[2019-06-11] MEDS ORDERED: fentaNYL INJECTION 100 MCG/2 ML AMP ONE (08:17)
--- NOTE | 2019-06-11 09:09 | Progress Note-Pre Operative ---
Pre-Operative Progress Note H&P Reviewed The H&P was reviewed, patient examined and no changes noted. Date Seen by Provider: Jun 11, 2019 Time Seen by Provider: 09:07 Date H&P Reviewed: Jun 11, 2019 Time H&P Reviewed: 09:08 Pre-Operative Diagnosis: lung cancer THOM SANDERSON DO Jun 11, 2019 09:09
[2019-06-11] MEDS ORDERED: morphine INJ 10 MG/ML 1ML (SYR OR VIAL) IVP ONE (10:15)
[2019-06-11] MEDS ORDERED: ONDANSETRON 4 MG/2 ML (SDV) Z0FRAN IVP PRN (10:15)
--- NOTE | 2019-06-11 10:15 | Diagnostic Imaging Report ---
INDICATION: Central line placement IMPRESSION: 20.3 seconds of fluoroscopy and single digital image for localization was used in surgery by Dr. Ambrosio during right IJ Port-A-Cath insertion. Image shows the catheter tip projecting over the SVC. Dictated by: Dictated on workstation # [id number]
--- NOTE | 2019-06-11 10:16 | Progress Note-Post Operative ---
Post-Operative Progess Note Surgeon (s)/Instructor Private (s) Surgeon THOM SANDERSON DO Instructor Private: na Pre-Operative Diagnosis lung cancer Post-Operative Diagnosis same Procedure & Operative Findings Date of Procedure 06/11/19 Procedure Performed/Findings PROCEDURE: Right internal jugular port placement using ultrasound guidance. SURGEON: Daily. ANESTHESIA: MAC with local. COMPLICATIONS: None. ESTIMATED BLOOD LOSS: Minimal. INDICATIONS: The patient is a 84 year old male with lung cancer. Patient understands the risks and benefits of port placement and wished to proceed with the procedure. Consent was signed on the chart. PROCEDURE: The patient was taken to the operating suite, was prepped and draped in the sterile fashion. A surgical pause was performed. Ultrasound was used to locate the internal jugular vein. Once located anesthetic was infiltrated above it. Using micro-access kit, the right internal vein was accessed. Dark nonpulsatile blood was withdrawn. The wire was inserted. Fluoroscopy assured proper placement. The needle was removed. The micro-access dilator was advanced over the wire and the wire was removed. The regular wire was inserted and fluoroscopy assured proper placement. The wire was then secured. Local anesthetic was used to anesthetize from the neck for tunneling down to the right chest and for pocket creation. A 15 blade scalpel was used to make an incision over the right chest. Cautery was used to dissect down to the pectoral fascia. A pocket was created with blunt dissection. The dilator sheath was then advanced over the wire under fluoroscopy and the dilator and wire were removed. The Groshong catheter was inserted through the sheath and the sheath was then removed. The Groshong wire was removed. The catheter was then tunneled to the right chest pocket. Fluoroscopy was used to cut to length and this was then attached to the port which was then placed within the pocket. The port was then accessed without difficulty. It was then flushed with saline and then heparin. The subcutaneous tissues were then reapproximated using 3-0 Vicryl. The areas were then washed and dried. Skin Affix was placed over incision. The insertion point of the neck Skin Affix was placed over the incision. The patient tolerated the procedure well without complication and was taken to recovery room in stable condition. Chest x-ray is pending. Anesthesia Type Mac w/Local Estimated Blood Loss Estimated blood loss (mL): minimal Specimens/Packing Specimens Removed n/a THOM SANDERSON DO Jun 11, 2019 10:16
--- NOTE | 2019-06-11 10:50 | Diagnostic Imaging Report ---
INDICATION: Central line placement Right IJ Port-A-Cath tip projects over the SVC. There is a right paratracheal lobulated mass in the mediastinum. Lungs are clear. IMPRESSION: Right paratracheal mass. IJ Port-A-Cath tip projects over the SVC. Dictated by: Dictated on workstation # [id number]
--- NOTE | 2019-06-15 14:27 | Anesthesia-General Post-Op ---
MAC Significant Intra-Op Events Notes addendum post op note for 06-11-19 at 1100 Patient Condition Mental Status/LOC: Same as Preop Cardiovascular: Satisfactory Nausea/Vomiting: Absent Respiratory: Satisfactory Pain: Controlled Complications: Absent Post Op Complications Complications None Follow Up Care/Instructions Patient Instructions None needed. Anesthesiology Discharge Order Discharge Order Patient is doing well, no complaints, stable vital signs, no apparent adverse anesthesia problems. No complications reported per nursing. SANJU WHITE CRNA Jun 15, 2019 14:27
== END 2019-06-11 11:25 | disposition home or self-care (01) ==
LOC: SDC 07:45
PROVIDERS: ATTEND Surgery
DX: C34.90 Malignant neoplasm of unspecified part of unspecified bronchus or lung (principal); C79.31 Secondary malignant neoplasm of brain; I10 Essential (primary) hypertension; I25.10 Atherosclerotic heart disease of native coronary artery without angina pectoris; N18.9 Chronic kidney disease, unspecified; I25.2 Old myocardial infarction; E78.5 Hyperlipidemia, unspecified; Z86.73 Personal history of transient ischemic attack (TIA), and cerebral infarction without residual deficits; Z91.041 Radiographic dye allergy status; Z79.899 Other long term (current) drug therapy; Z90.89 Acquired absence of other organs; Z80.9 Family history of malignant neoplasm, unspecified; Z82.3 Family history of stroke
CPT/HCPCS: 71045; 87081

== ENCOUNTER → 2019-06-14 | Outpatient (CLI) | payer MEDICARE ==
[~2019-06-14] MED LIST changes: -0.9% SODIUM CHLORIDE PF INJ 20 ML VIAL ONE; -BUP/EPI 0.5% 1:200,000 (SENSORCAINE) 30 ML VIAL ONE; -HEParin (CENTRAL IV FLUSH) 500 UNIT/5 ML SYR ONE
--- NOTE | 2019-06-14 15:14 | Diagnostic Imaging Report ---
INDICATION: Fall with right shoulder pain. TIME OF EXAM: 03:04 p.m. FINDINGS: Three views of the right shoulder were obtained. Glenohumeral alignment is normal. The distal clavicle is positioned cephalad to the acromion consistent with acromioclavicular separation. No fractures are seen. There are glenohumeral joint degenerative changes. IMPRESSION: Acromioclavicular separation. No acute bony abnormality is detected. Dictated by: Dictated on workstation # [id number]
== END ==
LOC: RAD 14:34
PROVIDERS: ATTEND Nurse Practitioner Adult Health
DX: S43.101A Unspecified dislocation of right acromioclavicular joint, initial encounter (principal); W19.XXXA Unspecified fall, initial encounter
CPT/HCPCS: 73030

== ENCOUNTER 2019-08-02 12:57 | Outpatient (RCR) | payer MEDICARE ==
[2019-06-14 14:29] LABS: BASOPHILS % (AUTO) 0 % (0-10); EOSINOPHILS # (AUTO) 0.1 10^3/uL (0.0-0.3); EOSINOPHILS % (AUTO) 1 % (0-10); HEMATOCRIT 38 % (40-54); HEMOGLOBIN 12.2 G/DL (13.3-17.7); LYMPHOCYTES # (AUTO) 0.9 X 10^3 (1.0-4.0); LYMPHOCYTES % (AUTO) 13 % (12-44); MEAN CORPUSCULAR HEMOGLOBIN 32 PG (25-34); MEAN CORPUSCULAR HGB CONC 32 G/DL (32-36); MEAN CORPUSCULAR VOLUME 100 FL (80-99); MEAN PLATELET VOLUME 9.3 FL (7.4-10.4); MONOCYTES # (AUTO) 1.2 X 10^3 (0.0-1.0); MONOCYTES % (AUTO) 16 % (0-12); NEUTROPHILS % (AUTO) 69 % (42-75); PLATELET COUNT 335 10^3/uL (130-400); RED CELL DISTRIBUTION WIDTH 13.5 % (10.0-14.5); WHITE BLOOD COUNT 7.2 10^3/uL (4.3-11.0)
[2019-06-14 14:48] LABS: ALANINE AMINOTRANSFERASE 15 U/L (0-55); ALBUMIN 3.5 GM/DL (3.2-4.5); ALKALINE PHOSPHATASE 102 U/L (40-136); BILIRUBIN,TOTAL 0.5 MG/DL (0.1-1.0); BUN/CREATININE RATIO 15; CALCIUM 9.3 MG/DL (8.5-10.1); CARBON DIOXIDE 24 MMOL/L (21-32); CHLORIDE 106 MMOL/L (98-107); CREATININE SERUM 1.14 MG/DL (0.60-1.30); GFR ESTIMATED > 60; GLUCOSE 93 MG/DL (70-105); POTASSIUM 3.8 MMOL/L (3.6-5.0); SODIUM 139 MMOL/L (135-145); TOTAL PROTEIN 6.2 GM/DL (6.4-8.2)
[2019-06-21 14:25] LABS: BASOPHILS % (AUTO) 0 % (0-10); EOSINOPHILS # (AUTO) 0.1 10^3/uL (0.0-0.3); EOSINOPHILS % (AUTO) 1 % (0-10); HEMATOCRIT 36 % (40-54); HEMOGLOBIN 11.8 G/DL (13.3-17.7); LYMPHOCYTES # (AUTO) 1.2 X 10^3 (1.0-4.0); LYMPHOCYTES % (AUTO) 21 % (12-44); MEAN CORPUSCULAR HEMOGLOBIN 32 PG (25-34); MEAN CORPUSCULAR HGB CONC 33 G/DL (32-36); MEAN CORPUSCULAR VOLUME 99 FL (80-99); MEAN PLATELET VOLUME 9.3 FL (7.4-10.4); MONOCYTES # (AUTO) 0.7 X 10^3 (0.0-1.0); MONOCYTES % (AUTO) 12 % (0-12); NEUTROPHILS # (AUTO) 3.7 X 10^3 (1.8-7.8); NEUTROPHILS % (AUTO) 65 % (42-75); PLATELET COUNT 356 10^3/uL (130-400); RED CELL DISTRIBUTION WIDTH 13.2 % (10.0-14.5); WHITE BLOOD COUNT 5.6 10^3/uL (4.3-11.0)
[2019-06-21 14:59] LABS: CALCIUM 9.1 MG/DL (8.5-10.1); CREATININE SERUM 1.43 MG/DL (0.60-1.30)
[2019-06-28 13:17] LABS: BASOPHILS % (AUTO) 1 % (0-10); EOSINOPHILS % (AUTO) 0 % (0-10); HEMATOCRIT 37 % (40-54); HEMOGLOBIN 11.9 G/DL (13.3-17.7); LYMPHOCYTES # (AUTO) 1.2 X 10^3 (1.0-4.0); LYMPHOCYTES % (AUTO) 21 % (12-44); MEAN CORPUSCULAR HEMOGLOBIN 32 PG (25-34); MEAN CORPUSCULAR HGB CONC 32 G/DL (32-36); MEAN CORPUSCULAR VOLUME 100 FL (80-99); MEAN PLATELET VOLUME 10.2 FL (7.4-10.4); MONOCYTES # (AUTO) 0.4 X 10^3 (0.0-1.0); MONOCYTES % (AUTO) 8 % (0-12); NEUTROPHILS # (AUTO) 4.2 X 10^3 (1.8-7.8); NEUTROPHILS % (AUTO) 71 % (42-75); PLATELET COUNT 273 10^3/uL (130-400); RED CELL DISTRIBUTION WIDTH 13.6 % (10.0-14.5); WHITE BLOOD COUNT 5.9 10^3/uL (4.3-11.0)
[2019-06-28 13:35] LABS: CALCIUM 8.9 MG/DL (8.5-10.1); CREATININE SERUM 1.51 MG/DL (0.60-1.30); POTASSIUM 3.6 MMOL/L (3.6-5.0)
[2019-07-05 11:50] LABS: BASOPHILS % (AUTO) 0 % (0-10); EOSINOPHILS % (AUTO) 0 % (0-10); HEMATOCRIT 35 % (40-54); HEMOGLOBIN 11.4 G/DL (13.3-17.7); LYMPHOCYTES % (AUTO) 19 % (12-44); MEAN CORPUSCULAR HEMOGLOBIN 32 PG (25-34); MEAN CORPUSCULAR HGB CONC 32 G/DL (32-36); MEAN CORPUSCULAR VOLUME 99 FL (80-99); MEAN PLATELET VOLUME 10.3 FL (7.4-10.4); MONOCYTES # (AUTO) 0.5 X 10^3 (0.0-1.0); MONOCYTES % (AUTO) 9 % (0-12); NEUTROPHILS # (AUTO) 3.9 X 10^3 (1.8-7.8); NEUTROPHILS % (AUTO) 72 % (42-75); PLATELET COUNT 277 10^3/uL (130-400); RED CELL DISTRIBUTION WIDTH 13.5 % (10.0-14.5); WHITE BLOOD COUNT 5.4 10^3/uL (4.3-11.0)
[2019-07-05 12:07] LABS: CALCIUM 8.8 MG/DL (8.5-10.1); POTASSIUM 3.6 MMOL/L (3.6-5.0)
[2019-07-12 13:25] LABS: BASOPHILS % (AUTO) 1 % (0-10); EOSINOPHILS % (AUTO) 1 % (0-10); HEMATOCRIT 35 % (40-54); HEMOGLOBIN 11.7 G/DL (13.3-17.7); LYMPHOCYTES # (AUTO) 1.2 X 10^3 (1.0-4.0); LYMPHOCYTES % (AUTO) 19 % (12-44); MEAN CORPUSCULAR HEMOGLOBIN 33 PG (25-34); MEAN CORPUSCULAR HGB CONC 33 G/DL (32-36); MEAN CORPUSCULAR VOLUME 99 FL (80-99); MEAN PLATELET VOLUME 9.3 FL (7.4-10.4); MONOCYTES % (AUTO) 16 % (0-12); NEUTROPHILS % (AUTO) 64 % (42-75); PLATELET COUNT 227 10^3/uL (130-400); RED CELL DISTRIBUTION WIDTH 14.3 % (10.0-14.5); WHITE BLOOD COUNT 6.2 10^3/uL (4.3-11.0)
[2019-07-12 13:43] LABS: ALANINE AMINOTRANSFERASE 12 U/L (0-55); ALBUMIN 3.5 GM/DL (3.2-4.5); ALKALINE PHOSPHATASE 67 U/L (40-136); BILIRUBIN,TOTAL 0.4 MG/DL (0.1-1.0); BUN/CREATININE RATIO 10; CALCIUM 8.6 MG/DL (8.5-10.1); CARBON DIOXIDE 21 MMOL/L (21-32); CHLORIDE 108 MMOL/L (98-107); CREATININE SERUM 1.01 MG/DL (0.60-1.30); GFR ESTIMATED > 60; GLUCOSE 81 MG/DL (70-105); POTASSIUM 3.7 MMOL/L (3.6-5.0); SODIUM 140 MMOL/L (135-145); TOTAL PROTEIN 5.6 GM/DL (6.4-8.2)
[2019-07-19 14:27] LABS: BASOPHILS % (AUTO) 0 % (0-10); EOSINOPHILS # (AUTO) 0.1 10^3/uL (0.0-0.3); EOSINOPHILS % (AUTO) 2 % (0-10); HEMATOCRIT 35 % (40-54); HEMOGLOBIN 11.4 G/DL (13.3-17.7); LYMPHOCYTES % (AUTO) 20 % (12-44); MEAN CORPUSCULAR HEMOGLOBIN 32 PG (25-34); MEAN CORPUSCULAR HGB CONC 33 G/DL (32-36); MEAN CORPUSCULAR VOLUME 99 FL (80-99); MEAN PLATELET VOLUME 9.5 FL (7.4-10.4); MONOCYTES # (AUTO) 0.4 X 10^3 (0.0-1.0); MONOCYTES % (AUTO) 8 % (0-12); NEUTROPHILS # (AUTO) 3.7 X 10^3 (1.8-7.8); NEUTROPHILS % (AUTO) 71 % (42-75); PLATELET COUNT 146 10^3/uL (130-400); WHITE BLOOD COUNT 5.2 10^3/uL (4.3-11.0)
[2019-07-19 14:43] LABS: BUN/CREATININE RATIO 12; CALCIUM 8.7 MG/DL (8.5-10.1); CARBON DIOXIDE 24 MMOL/L (21-32); CHLORIDE 104 MMOL/L (98-107); GFR ESTIMATED > 60; GLUCOSE 92 MG/DL (70-105); POTASSIUM 3.6 MMOL/L (3.6-5.0); SODIUM 139 MMOL/L (135-145)
[2019-07-26 14:13] LABS: BASOPHILS % (AUTO) 0 % (0-10); EOSINOPHILS # (AUTO) 0.2 10^3/uL (0.0-0.3); EOSINOPHILS % (AUTO) 4 % (0-10); HEMATOCRIT 35 % (40-54); HEMOGLOBIN 11.7 G/DL (13.3-17.7); LYMPHOCYTES # (AUTO) 1.3 X 10^3 (1.0-4.0); LYMPHOCYTES % (AUTO) 27 % (12-44); MEAN CORPUSCULAR HEMOGLOBIN 33 PG (25-34); MEAN CORPUSCULAR HGB CONC 34 G/DL (32-36); MEAN CORPUSCULAR VOLUME 97 FL (80-99); MEAN PLATELET VOLUME 9.3 FL (7.4-10.4); MONOCYTES # (AUTO) 0.3 X 10^3 (0.0-1.0); MONOCYTES % (AUTO) 6 % (0-12); NEUTROPHILS # (AUTO) 3.1 X 10^3 (1.8-7.8); NEUTROPHILS % (AUTO) 64 % (42-75); PLATELET COUNT 166 10^3/uL (130-400); RED CELL DISTRIBUTION WIDTH 14.4 % (10.0-14.5); WHITE BLOOD COUNT 4.8 10^3/uL (4.3-11.0)
[2019-07-26 14:32] LABS: BUN/CREATININE RATIO 18; CALCIUM 9.2 MG/DL (8.5-10.1); CARBON DIOXIDE 20 MMOL/L (21-32); CHLORIDE 103 MMOL/L (98-107); CREATININE SERUM 1.02 MG/DL (0.60-1.30); GFR ESTIMATED > 60; GLUCOSE 88 MG/DL (70-105); SODIUM 135 MMOL/L (135-145)
[~2019-08-02] VITALS: Ht 168.9 cm; Wt 70.3 kg
[~2019-08-02 12:57] MED LIST changes: +NS IV 1000 ML (CANCER CTR) IV SCH; +PACLitaxel PROTEIN 130 MG in EMPTY IV BAG (PVC) CANCER CTR 1 EA IV SCH; +PALONOSETRON HCL 0.25 MG, DEXAMETHASONE INJECTION 10 MG in NS (IVPB) CANCER CENTER 50 ML IV SCH
[2019-08-02 13:33] LABS: BASOPHILS % (AUTO) 0 % (0-10); EOSINOPHILS % (AUTO) 1 % (0-10); HEMATOCRIT 35 % (40-54); HEMOGLOBIN 11.9 G/DL (13.3-17.7); LYMPHOCYTES # (AUTO) 0.9 X 10^3 (1.0-4.0); LYMPHOCYTES % (AUTO) 34 % (12-44); MEAN CORPUSCULAR HEMOGLOBIN 33 PG (25-34); MEAN CORPUSCULAR HGB CONC 34 G/DL (32-36); MEAN CORPUSCULAR VOLUME 98 FL (80-99); MEAN PLATELET VOLUME 9.4 FL (7.4-10.4); MONOCYTES # (AUTO) 0.3 X 10^3 (0.0-1.0); MONOCYTES % (AUTO) 12 % (0-12); NEUTROPHILS # (AUTO) 1.4 X 10^3 (1.8-7.8); NEUTROPHILS % (AUTO) 53 % (42-75); PLATELET COUNT 317 10^3/uL (130-400); RED CELL DISTRIBUTION WIDTH 15.2 % (10.0-14.5); WHITE BLOOD COUNT 2.7 10^3/uL (4.3-11.0)
[2019-08-02 13:58] LABS: CHLORIDE 104 MMOL/L (98-107); SODIUM 136 MMOL/L (135-145)
[2019-08-02 14:00] LABS: CALCIUM 9.2 MG/DL (8.5-10.1); GLUCOSE 100 MG/DL (70-105)
[2019-08-02 14:01] LABS: CARBON DIOXIDE 23 MMOL/L (21-32)
[2019-08-02 14:04] LABS: CREATININE SERUM 1.14 MG/DL (0.60-1.30); GFR ESTIMATED > 60
[2019-08-02 14:05] LABS: BUN/CREATININE RATIO 13
== END 2019-08-08 | disposition home or self-care (01) ==
LOC: ONC 12:57
PROVIDERS: ATTEND Internal Medicine Hematology & Oncology
DX: Z51.11 Encounter for antineoplastic chemotherapy (principal); Z51.0 Encounter for antineoplastic radiation therapy; C79.31 Secondary malignant neoplasm of brain; C34.11 Malignant neoplasm of upper lobe, right bronchus or lung
CPT/HCPCS: 36591; 77295; 77300; 77334; 77336; 77417; 80048; 80053; 85025; 96360; 96361; 96375; 96411; 96413; 96417; 99213

== ENCOUNTER → 2019-09-02 | Outpatient (CLI) | payer MEDICARE ==
[~2019-09-02] MED LIST changes: +BARIUM SUSPENSION 2.1% (VANILLA SILQ) 450 ML PO ONE; +CATHETER FLUSH 10 ML SYR IV PRN; +HOLD METFORMIN - RECEIVED CONTRAST 20 ML VIAL IV SCH; +IOHEXOL 350 MG/ML 100 ML (OMNIPAQUE 350) VIAL IV ONE; +NS 100 ML (IVPB) BAG IV ONE; -NS IV 1000 ML (CANCER CTR) IV SCH; -PACLitaxel PROTEIN 130 MG in EMPTY IV BAG (PVC) CANCER CTR 1 EA IV SCH; -PALONOSETRON HCL 0.25 MG, DEXAMETHASONE INJECTION 10 MG in NS (IVPB) CANCER CENTER 50 ML IV SCH
--- NOTE | 2019-09-02 12:27 | Diagnostic Imaging Report ---
PROCEDURE: CT head with and without contrast. TECHNIQUE: Multiple contiguous axial images were obtained through the brain before and after the administration of intravenous contrast. Auto Exposure Controls were utilized during the CT exam to meet ALARA standards for radiation dose reduction. INDICATION: Lung cancer with known metastatic disease in the brain. Headaches. COMPARISON: 05/05/2019 FINDINGS: Multiple enhancing intraparenchymal masses are identified involving the bilateral cerebral hemispheres. Comparison to prior exam is somewhat suboptimal given differences in pre and postcontrast technique. However, there does appear to be interval improvement. Dominant lesion involving the posterior right parietal region measures 2.2 x 2.1 cm on today's exam. Previously, this measured approximately 3.3 x 3.1 cm. Slightly anterior and lateral to this is an additional 0.8 x 1 cm lesion. This also appears improved compared to 1.2 cm on prior exam. On the left, frontal lobe lesion measures 1.5 x 1.5 cm. This is stable compared to similar measurements on the prior exam of 1.5 x 1.5 cm. Left temporal occipital lesion now measures 2.1 x 2.8 cm. This is improved compared to 2.9 x 3.5 cm previously. There is moderate amount of cerebral edema related to the above lesions. There is some effacement of the overlying sulci. There is however no midline shift. Basal cisterns are maintained. Ventricles and cortical sulci are otherwise diffusely prominent consistent with underlying age-related parenchymal volume loss. There is no new loss of israel-white matter junction differentiation to suggest an acute infarct. There is no evidence of intra or extra-axial intracranial hemorrhage. Bony calvarium is intact. Paranasal sinuses and mastoid air cells are clear. IMPRESSION: 1. Redemonstration of multiple enhancing intracranial masses of the bilateral cerebral hemisphere. Overall, there has been interval improvement when compared to 05/05/2019. 2. Persistent surrounding cerebral edema with mild mass effect, but no midline shift or evidence of herniation. 3. Background age-related parenchymal volume loss. Dictated by: Dictated on workstation # [id number]
--- NOTE | 2019-09-02 15:16 | Diagnostic Imaging Report ---
PROCEDURE: CT chest and abdomen with contrast. TECHNIQUE: Multiple contiguous axial images were obtained through the chest and abdomen after the administration of intravenous contrast. Auto Exposure Controls were utilized during the CT exam to meet ALARA standards for radiation dose reduction. INDICATION: Right upper lobe lung cancer with metastatic disease to the brain. Follow-up. CORRELATION STUDY: CT chest, abdomen and pelvis 05/06/2019. FINDINGS: CT CHEST: Posterior medial right upper lobe paramediastinal mass is again demonstrated. Currently measuring approximately 4.9 x 4.2 x 5.3 cm, (previously 5.1 x 5.4 x 5.2 cm). Previously noted nodule in medial left lower lobe along the anterior descending thoracic aorta, 7 mm, (previously 12 mm). Areas of bullous emphysematous change. No infiltrate. Right IJ Esqrnn-i-Nkco catheter was placed, tip in the low SVC. A few shotty but non-pathologically enlarged mediastinal lymph nodes present. Heart size normal with moderate coronary artery calcification. Thoracic aorta with scattered atherosclerotic change. Mildly advanced degenerative changes of thoracic spine. No suspicious osseous lesion. CT ABDOMEN and PELVIS: Liver, gallbladder, spleen, pancreas and adrenal glands are unremarkable. Exophytic, 4 cm cyst in superior of pole left kidney. 13 mm partially exophytic, enhancing mass interpolar region of right kidney. 16 mm mass suggested in superior pole of right kidney. Advanced atherosclerotic change about the abdominal aorta, nonaneurysmal. Inferior vena cava unremarkable. No pathologically enlarged central retroperitoneal lymph nodes. Calcification of the major branches. Partially visualized gastrointestinal tract moderate severity fecal retention. Advanced degenerative changes of thoracic spine. No suspicious osseous lesion. Pelvis not imaged. IMPRESSION: CT CHEST: 1. Right upper lobe lung mass slightly decreased in size. 2. Left lower lobe nodule, slightly decreased in size. CT ABDOMEN: 1. Two solid-appearing masses in right kidney, suspicious for neoplasm. Perhaps synchronous renal malignancy. Report was called and faxed to the office of JOSE CARLOS Cosme at 3:07 p.m., by lizzy. Dictated by: Dictated on workstation # [id number]
--- NOTE | 2019-09-02 19:05 | Diagnostic Imaging Report ---
INDICATION: History of metastatic lung cancer. TECHNIQUE: The patient was administered 25.1 mCi technetium 99m MDP intravenously. Anterior and posterior whole-body planar images are obtained. CORRELATION STUDY: 06/08/2019 FINDINGS: There is increased uptake over the right acromioclavicular region, appears changed from prior study. Shoulder girdles otherwise appearing generally unremarkable. Bony calvarium unremarkable. Very mild scoliotic curvature about the thoracolumbar spine. No abnormal or asymmetric uptake about the ribs and/or sternum. Pelvis and long bones of the extremities unremarkable. IMPRESSION: 1. Slight new increased uptake over the right acromioclavicular joint. Correlation for history recommended. 2. Otherwise, stable negative appearing bone scan. Dictated by: Dictated on workstation # [id number]
== END ==
LOC: CARD 10:51
PROVIDERS: ATTEND Nurse Practitioner Adult Health
DX: H53.9 Unspecified visual disturbance (principal); C79.31 Secondary malignant neoplasm of brain; C34.11 Malignant neoplasm of upper lobe, right bronchus or lung; N28.9 Disorder of kidney and ureter, unspecified
CPT/HCPCS: 70470; 71260; 74160; 78306

== ENCOUNTER 2019-09-09 07:47 | Outpatient (CLI) | payer MEDICARE ==
[2019-09-09] VITALS (13 sets, daily range): BP systolic 111–148; BP diastolic 50–76
[~2019-09-09] VITALS: Ht 170.2 cm; Wt 66.0 kg
[~2019-09-09 07:47] MED LIST changes: -BARIUM SUSPENSION 2.1% (VANILLA SILQ) 450 ML PO ONE; -CATHETER FLUSH 10 ML SYR IV PRN; -HOLD METFORMIN - RECEIVED CONTRAST 20 ML VIAL IV SCH; -IOHEXOL 350 MG/ML 100 ML (OMNIPAQUE 350) VIAL IV ONE; -NS 100 ML (IVPB) BAG IV ONE
[2019-09-09 08:39] LABS: HEMOGLOBIN 11.7 G/DL (13.3-17.7); MEAN PLATELET VOLUME 10.2 FL (7.4-10.4); RED CELL DISTRIBUTION WIDTH 15.4 % (10.0-14.5); WHITE BLOOD COUNT 4.5 10^3/uL (4.3-11.0)
[2019-09-09] MEDS ORDERED: NS IV 1000 ML 1,000 ML IV STA (08:59)
[2019-09-09] MEDS ORDERED: MIDAZOLAM 2 MG/2 ML (VERSED) VIAL IVP ONE (09:00)
[2019-09-09] MEDS ORDERED: fentaNYL INJECTION 100 MCG/2 ML AMP IVP ONE (09:00)
[2019-09-09] MEDS ORDERED: LIDOCAINE 1% INJ 20 ML 20 ML VIAL INJ ONE (09:00)
[2019-09-09 09:13] LABS: PROTHROMBIN TIME PATIENT 13.8 SEC (12.2-14.7)
[2019-09-09] MEDS ORDERED: HYDROcodone/APAP 5 MG/325 MG (LORTAB) TAB PO PRN (10:30)
--- NOTE | 2019-09-09 10:45 | Pre-Op Note & Conscious Sedat ---
Pre-Operative Progress Note H&P Reviewed The H&P was reviewed, patient examined and no changes noted. Date H&P Reviewed: September 09, 2019 Time H&P Reviewed: 09:00 Pre-Op Diagnosis: Lung mass Conscious Sedation Pre-Proced Time 09:00 ASA Score 2 For ASA 3 and 4: Consider anesthesia and medical clearance. Also, for patients with a history of failed moderate sedation consider anesthesia. Airway Lungs Heart ASA score ASA 1: a normal healthy patient ASA 2: a patient with a mild systemic disease (mid diabetes, controlled hypertension, obesity ASA 3: a patient with a severe systemic disease that limits activity (angina, COPD, prior Myocardial infarction) ASA 4: a patient with an incapacitating disease that is a constant threat to life (CHF, renal failure) ASA 5: a moribund patient not expected to survive 24 hrs. (ruptured aneurysm) ASA 6: a declared brain- patient whose organs are being harvested. For emergent operations, add the letter E after the classification Mallampati Classification Grade 2 Sedation Plan Analgesia, Amnesia, Plan communicated to team members, Discussed options with patient/fam, Discussed risks with patient/fam The patient is an appropriate candidate to undergo the planned procedure, sedation, and anesthesia. The patient immediately re-assessed prior to indication. GABY MORATAYA MD September 09, 2019 10:45
--- NOTE | 2019-09-09 10:54 | Diagnostic Imaging Report ---
INDICATION: Right lung mass. Patient presents for CT-guided biopsy. TECHNIQUE: All CT scans use one or more of the following dose optimizing techniques: automated exposure control, MA and/or KvP adjustment based on a patient size and exam type, or iterative reconstruction. The patient was brought to the CT suite, placed on the table in the prone position. Axial imaging through the chest was performed to evaluate appropriate entry site. The procedure was performed utilizing conscious sedation with radiology nursing and constant patient monitoring. The patient was administered a total of 50 mcg of fentanyl intravenously. Total procedure time was approximately 9 minutes. The right posterior thorax was prepped and draped in the usual sterile fashion. A small amount of 1% lidocaine was utilized for local anesthesia. A 20-gauge coaxial Temno needle was advanced and placed with its tip within the lobulated lesion in the medial aspect of the right upper lobe. A total of 4 core biopsies were obtained. A blood patch was injected during needle removal. Follow-up imaging is without complicating features. No pneumothorax is seen. IMPRESSION: 1. Successful CT-guided core biopsy of lobulated mass in the medial right upper lobe, utilizing conscious sedation. Dictated by: Dictated on workstation # [id number]
--- NOTE | 2019-09-09 12:04 | Diagnostic Imaging Report ---
INDICATION: Right lung biopsy. TIME OF EXAM: 11:53 AM Comparison is made with prior chest from 06/11/2019. FINDINGS: A portable expiratory radiograph was obtained, status post lung biopsy. Right paratracheal mass is again noted. No pneumothorax is seen status post biopsy. Lungs are clear of acute infiltrates. Right chest wall port remains in place. IMPRESSION: No evidence of pneumothorax, status post right lung biopsy. Dictated by: Dictated on workstation # [id number]
== END 2019-09-09 12:45 | disposition home or self-care (01) ==
LOC: SDC 07:47
PROVIDERS: ATTEND Internal Medicine Hematology & Oncology
DX: C34.11 Malignant neoplasm of upper lobe, right bronchus or lung (principal); Z98.890 Other specified postprocedural states
CPT/HCPCS: 36415; 71045; 77012; 85027; 85610; 85730; 88305

== ENCOUNTER 2019-10-25 10:22 | Outpatient (RCR) | payer MEDICARE ==
[2019-08-09 11:43] LABS: BASOPHILS % (AUTO) 1 % (0-10); EOSINOPHILS % (AUTO) 0 % (0-10); HEMATOCRIT 36 % (40-54); HEMOGLOBIN 11.6 G/DL (13.3-17.7); LYMPHOCYTES % (AUTO) 29 % (12-44); MEAN CORPUSCULAR HEMOGLOBIN 33 PG (25-34); MEAN CORPUSCULAR HGB CONC 33 G/DL (32-36); MEAN CORPUSCULAR VOLUME 101 FL (80-99); MONOCYTES # (AUTO) 1.3 X 10^3 (0.0-1.0); MONOCYTES % (AUTO) 40 % (0-12); NEUTROPHILS % (AUTO) 30 % (42-75); PLATELET COUNT 321 10^3/uL (130-400); WHITE BLOOD COUNT 3.4 10^3/uL (4.3-11.0)
[2019-08-09 12:04] LABS: ALANINE AMINOTRANSFERASE 12 U/L (0-55); ALBUMIN 3.5 GM/DL (3.2-4.5); ALKALINE PHOSPHATASE 59 U/L (40-136); BILIRUBIN,TOTAL 0.4 MG/DL (0.1-1.0); BUN/CREATININE RATIO 17; CALCIUM 8.9 MG/DL (8.5-10.1); CARBON DIOXIDE 24 MMOL/L (21-32); CHLORIDE 108 MMOL/L (98-107); CREATININE SERUM 0.92 MG/DL (0.60-1.30); GFR ESTIMATED > 60; GLUCOSE 83 MG/DL (70-105); MAGNESIUM 1.8 MG/DL (1.6-2.4); POTASSIUM 3.9 MMOL/L (3.6-5.0); SODIUM 139 MMOL/L (135-145); TOTAL PROTEIN 5.7 GM/DL (6.4-8.2)
[2019-08-16 13:45] LABS: BASOPHILS % (AUTO) 1 % (0-10); EOSINOPHILS % (AUTO) 1 % (0-10); HEMATOCRIT 35 % (40-54); HEMOGLOBIN 11.3 G/DL (13.3-17.7); LYMPHOCYTES # (AUTO) 1.5 X 10^3 (1.0-4.0); LYMPHOCYTES % (AUTO) 26 % (12-44); MEAN CORPUSCULAR HEMOGLOBIN 33 PG (25-34); MEAN CORPUSCULAR HGB CONC 33 G/DL (32-36); MEAN CORPUSCULAR VOLUME 102 FL (80-99); MEAN PLATELET VOLUME 9.9 FL (7.4-10.4); MONOCYTES # (AUTO) 0.9 X 10^3 (0.0-1.0); MONOCYTES % (AUTO) 16 % (0-12); NEUTROPHILS # (AUTO) 3.1 X 10^3 (1.8-7.8); NEUTROPHILS % (AUTO) 56 % (42-75); PLATELET COUNT 288 10^3/uL (130-400); RED CELL DISTRIBUTION WIDTH 15.7 % (10.0-14.5); WHITE BLOOD COUNT 5.5 10^3/uL (4.3-11.0)
[2019-08-16 13:56] LABS: BUN/CREATININE RATIO 24; CALCIUM 8.8 MG/DL (8.5-10.1); CARBON DIOXIDE 23 MMOL/L (21-32); CHLORIDE 108 MMOL/L (98-107); CREATININE SERUM 0.86 MG/DL (0.60-1.30); GFR ESTIMATED > 60; GLUCOSE 89 MG/DL (70-105); SODIUM 139 MMOL/L (135-145)
[2019-08-23 13:52] LABS: BASOPHILS % (AUTO) 1 % (0-10); EOSINOPHILS # (AUTO) 0.1 10^3/uL (0.0-0.3); EOSINOPHILS % (AUTO) 1 % (0-10); HEMATOCRIT 35 % (40-54); HEMOGLOBIN 11.5 G/DL (13.3-17.7); LYMPHOCYTES # (AUTO) 1.1 X 10^3 (1.0-4.0); LYMPHOCYTES % (AUTO) 17 % (12-44); MEAN CORPUSCULAR HEMOGLOBIN 34 PG (25-34); MEAN CORPUSCULAR HGB CONC 33 G/DL (32-36); MEAN CORPUSCULAR VOLUME 103 FL (80-99); MEAN PLATELET VOLUME 9.9 FL (7.4-10.4); MONOCYTES # (AUTO) 0.6 X 10^3 (0.0-1.0); MONOCYTES % (AUTO) 9 % (0-12); NEUTROPHILS # (AUTO) 4.8 X 10^3 (1.8-7.8); NEUTROPHILS % (AUTO) 73 % (42-75); PLATELET COUNT 233 10^3/uL (130-400); RED CELL DISTRIBUTION WIDTH 15.8 % (10.0-14.5); WHITE BLOOD COUNT 6.6 10^3/uL (4.3-11.0)
[2019-08-23 14:15] LABS: BUN/CREATININE RATIO 19; CALCIUM 9.1 MG/DL (8.5-10.1); CARBON DIOXIDE 23 MMOL/L (21-32); CHLORIDE 106 MMOL/L (98-107); CREATININE SERUM 1.08 MG/DL (0.60-1.30); GFR ESTIMATED > 60; GLUCOSE 83 MG/DL (70-105); POTASSIUM 4.2 MMOL/L (3.6-5.0); SODIUM 138 MMOL/L (135-145)
[2019-08-30 13:41] LABS: BASOPHILS % (AUTO) 0 % (0-10); EOSINOPHILS % (AUTO) 1 % (0-10); HEMATOCRIT 39 % (40-54); HEMOGLOBIN 12.5 G/DL (13.3-17.7); LYMPHOCYTES # (AUTO) 1.2 X 10^3 (1.0-4.0); LYMPHOCYTES % (AUTO) 21 % (12-44); MEAN CORPUSCULAR HEMOGLOBIN 33 PG (25-34); MEAN CORPUSCULAR HGB CONC 32 G/DL (32-36); MEAN CORPUSCULAR VOLUME 103 FL (80-99); MEAN PLATELET VOLUME 9.3 FL (7.4-10.4); MONOCYTES # (AUTO) 0.5 X 10^3 (0.0-1.0); MONOCYTES % (AUTO) 9 % (0-12); NEUTROPHILS # (AUTO) 4.1 X 10^3 (1.8-7.8); NEUTROPHILS % (AUTO) 70 % (42-75); PLATELET COUNT 232 10^3/uL (130-400); RED CELL DISTRIBUTION WIDTH 15.7 % (10.0-14.5); WHITE BLOOD COUNT 5.9 10^3/uL (4.3-11.0)
[2019-08-30 13:56] LABS: CALCIUM 9.6 MG/DL (8.5-10.1); CREATININE SERUM 1.17 MG/DL (0.60-1.30); POTASSIUM 3.9 MMOL/L (3.6-5.0)
[2019-09-06 10:54] LABS: BASOPHILS % (AUTO) 0 % (0-10); EOSINOPHILS # (AUTO) 0.1 10^3/uL (0.0-0.3); EOSINOPHILS % (AUTO) 1 % (0-10); HEMATOCRIT 38 % (40-54); HEMOGLOBIN 12.5 G/DL (13.3-17.7); LYMPHOCYTES # (AUTO) 1.3 X 10^3 (1.0-4.0); LYMPHOCYTES % (AUTO) 24 % (12-44); MEAN CORPUSCULAR HEMOGLOBIN 34 PG (25-34); MEAN CORPUSCULAR HGB CONC 33 G/DL (32-36); MEAN CORPUSCULAR VOLUME 103 FL (80-99); MEAN PLATELET VOLUME 8.9 FL (7.4-10.4); MONOCYTES # (AUTO) 0.8 X 10^3 (0.0-1.0); MONOCYTES % (AUTO) 16 % (0-12); NEUTROPHILS # (AUTO) 3.1 X 10^3 (1.8-7.8); NEUTROPHILS % (AUTO) 59 % (42-75); PLATELET COUNT 204 10^3/uL (130-400); RED CELL DISTRIBUTION WIDTH 15.8 % (10.0-14.5); WHITE BLOOD COUNT 5.3 10^3/uL (4.3-11.0)
[2019-09-06 11:15] LABS: ALANINE AMINOTRANSFERASE 7 U/L (0-55); ALBUMIN 3.9 GM/DL (3.2-4.5); ALKALINE PHOSPHATASE 68 U/L (40-136); BILIRUBIN,TOTAL 0.6 MG/DL (0.1-1.0); BUN/CREATININE RATIO 12; CALCIUM 9.3 MG/DL (8.5-10.1); CARBON DIOXIDE 22 MMOL/L (21-32); CHLORIDE 108 MMOL/L (98-107); GFR ESTIMATED > 60; GLUCOSE 127 MG/DL (70-105); MAGNESIUM 1.8 MG/DL (1.6-2.4); POTASSIUM 3.7 MMOL/L (3.6-5.0); SODIUM 141 MMOL/L (135-145); TOTAL PROTEIN 6.6 GM/DL (6.4-8.2)
[2019-09-14 13:23] LABS: BASOPHILS % (AUTO) 0 % (0-10); EOSINOPHILS # (AUTO) 0.1 10^3/uL (0.0-0.3); EOSINOPHILS % (AUTO) 2 % (0-10); HEMATOCRIT 34 % (40-54); HEMOGLOBIN 11.3 G/DL (13.3-17.7); LYMPHOCYTES # (AUTO) 1.2 X 10^3 (1.0-4.0); LYMPHOCYTES % (AUTO) 21 % (12-44); MEAN CORPUSCULAR HEMOGLOBIN 34 PG (25-34); MEAN CORPUSCULAR HGB CONC 33 G/DL (32-36); MEAN CORPUSCULAR VOLUME 105 FL (80-99); MEAN PLATELET VOLUME 9.5 FL (7.4-10.4); MONOCYTES # (AUTO) 0.4 X 10^3 (0.0-1.0); MONOCYTES % (AUTO) 8 % (0-12); NEUTROPHILS # (AUTO) 3.9 X 10^3 (1.8-7.8); NEUTROPHILS % (AUTO) 70 % (42-75); PLATELET COUNT 145 10^3/uL (130-400); RED CELL DISTRIBUTION WIDTH 14.9 % (10.0-14.5); WHITE BLOOD COUNT 5.6 10^3/uL (4.3-11.0)
[2019-09-14 13:45] LABS: BUN/CREATININE RATIO 18; CALCIUM 8.9 MG/DL (8.5-10.1); CARBON DIOXIDE 24 MMOL/L (21-32); CHLORIDE 109 MMOL/L (98-107); CREATININE SERUM 1.08 MG/DL (0.60-1.30); GFR ESTIMATED > 60; GLUCOSE 106 MG/DL (70-105); POTASSIUM 4.1 MMOL/L (3.6-5.0); SODIUM 143 MMOL/L (135-145)
[2019-09-20 13:01] LABS: BASOPHILS % (AUTO) 0 % (0-10); EOSINOPHILS # (AUTO) 0.1 10^3/uL (0.0-0.3); EOSINOPHILS % (AUTO) 1 % (0-10); HEMATOCRIT 35 % (40-54); HEMOGLOBIN 11.6 G/DL (13.3-17.7); LYMPHOCYTES # (AUTO) 0.8 X 10^3 (1.0-4.0); LYMPHOCYTES % (AUTO) 23 % (12-44); MEAN CORPUSCULAR HEMOGLOBIN 35 PG (25-34); MEAN CORPUSCULAR HGB CONC 33 G/DL (32-36); MEAN CORPUSCULAR VOLUME 105 FL (80-99); MEAN PLATELET VOLUME 9.9 FL (7.4-10.4); MONOCYTES # (AUTO) 0.1 X 10^3 (0.0-1.0); MONOCYTES % (AUTO) 4 % (0-12); NEUTROPHILS # (AUTO) 2.7 X 10^3 (1.8-7.8); NEUTROPHILS % (AUTO) 72 % (42-75); PLATELET COUNT 159 10^3/uL (130-400); RED CELL DISTRIBUTION WIDTH 14.5 % (10.0-14.5); WHITE BLOOD COUNT 3.7 10^3/uL (4.3-11.0)
[2019-09-20 13:08] LABS: CHLORIDE 104 MMOL/L (98-107); POTASSIUM 3.7 MMOL/L (3.6-5.0); SODIUM 138 MMOL/L (135-145)
[2019-09-20 13:09] LABS: CALCIUM 9.1 MG/DL (8.5-10.1)
[2019-09-20 13:10] LABS: GLUCOSE 145 MG/DL (70-105)
[2019-09-20 13:11] LABS: CARBON DIOXIDE 23 MMOL/L (21-32)
[2019-09-20 13:14] LABS: CREATININE SERUM 1.04 MG/DL (0.60-1.30); GFR ESTIMATED > 60
[2019-09-20 13:15] LABS: BUN/CREATININE RATIO 24
[2019-09-27 11:02] LABS: BASOPHILS % (AUTO) 0 % (0-10); EOSINOPHILS # (AUTO) 0.1 10^3/uL (0.0-0.3); EOSINOPHILS % (AUTO) 3 % (0-10); HEMATOCRIT 36 % (40-54); HEMOGLOBIN 11.6 G/DL (13.3-17.7); LYMPHOCYTES # (AUTO) 1.2 X 10^3 (1.0-4.0); LYMPHOCYTES % (AUTO) 36 % (12-44); MEAN CORPUSCULAR HEMOGLOBIN 34 PG (25-34); MEAN CORPUSCULAR HGB CONC 33 G/DL (32-36); MEAN CORPUSCULAR VOLUME 104 FL (80-99); MEAN PLATELET VOLUME 8.7 FL (7.4-10.4); MONOCYTES # (AUTO) 0.6 X 10^3 (0.0-1.0); MONOCYTES % (AUTO) 19 % (0-12); NEUTROPHILS # (AUTO) 1.4 X 10^3 (1.8-7.8); NEUTROPHILS % (AUTO) 42 % (42-75); PLATELET COUNT 209 10^3/uL (130-400); RED CELL DISTRIBUTION WIDTH 14.9 % (10.0-14.5); WHITE BLOOD COUNT 3.2 10^3/uL (4.3-11.0)
[2019-09-27 11:20] LABS: ALANINE AMINOTRANSFERASE 12 U/L (0-55); ALBUMIN 3.6 GM/DL (3.2-4.5); ALKALINE PHOSPHATASE 78 U/L (40-136); BILIRUBIN,TOTAL 0.4 MG/DL (0.1-1.0); BUN/CREATININE RATIO 15; CALCIUM 9.1 MG/DL (8.5-10.1); CARBON DIOXIDE 25 MMOL/L (21-32); CHLORIDE 109 MMOL/L (98-107); CREATININE SERUM 1.04 MG/DL (0.60-1.30); GFR ESTIMATED > 60; GLUCOSE 86 MG/DL (70-105); MAGNESIUM 1.8 MG/DL (1.6-2.4); POTASSIUM 3.9 MMOL/L (3.6-5.0); SODIUM 142 MMOL/L (135-145); TOTAL PROTEIN 5.5 GM/DL (6.4-8.2)
--- NOTE | 2019-09-27 12:43 | Diagnostic Imaging Report ---
INDICATION: Lung cancer, followup. TIME OF EXAM: 10:42 AM. COMPARISON: Prior chest from 09/09/2019. FINDINGS: A right chest wall Port has its tip overlying the SVC. The soft tissue mass-like density in the right paratracheal location is stable to perhaps slightly less prominent when compared with the prior study. No new parenchymal opacities are seen. There is no effusion or pneumothorax. The pulmonary vascularity is normal. IMPRESSION: The right paratracheal soft tissue density persists but does appear to be slightly smaller when compared with the examination from 09/09/2019. Dictated by: Dictated on workstation # [id number]
[2019-10-04 13:32] LABS: BASOPHILS % (AUTO) 0 % (0-10); EOSINOPHILS % (AUTO) 1 % (0-10); HEMATOCRIT 34 % (40-54); HEMOGLOBIN 11.4 G/DL (13.3-17.7); LYMPHOCYTES % (AUTO) 24 % (12-44); MEAN CORPUSCULAR HEMOGLOBIN 35 PG (25-34); MEAN CORPUSCULAR HGB CONC 33 G/DL (32-36); MEAN CORPUSCULAR VOLUME 105 FL (80-99); MEAN PLATELET VOLUME 9.1 FL (7.4-10.4); MONOCYTES % (AUTO) 24 % (0-12); NEUTROPHILS # (AUTO) 2.1 X 10^3 (1.8-7.8); NEUTROPHILS % (AUTO) 51 % (42-75); PLATELET COUNT 232 10^3/uL (130-400); RED CELL DISTRIBUTION WIDTH 14.4 % (10.0-14.5); WHITE BLOOD COUNT 4.1 10^3/uL (4.3-11.0)
[2019-10-04 13:55] LABS: BUN/CREATININE RATIO 19; CALCIUM 8.9 MG/DL (8.5-10.1); CARBON DIOXIDE 22 MMOL/L (21-32); CHLORIDE 108 MMOL/L (98-107); CREATININE SERUM 1.08 MG/DL (0.60-1.30); GFR ESTIMATED > 60; GLUCOSE 123 MG/DL (70-105); POTASSIUM 3.8 MMOL/L (3.6-5.0); SODIUM 141 MMOL/L (135-145)
[2019-10-11 13:50] LABS: BASOPHILS % (AUTO) 1 % (0-10); EOSINOPHILS # (AUTO) 0.1 10^3/uL (0.0-0.3); EOSINOPHILS % (AUTO) 2 % (0-10); HEMATOCRIT 35 % (40-54); HEMOGLOBIN 11.6 G/DL (13.3-17.7); LYMPHOCYTES # (AUTO) 1.2 X 10^3 (1.0-4.0); LYMPHOCYTES % (AUTO) 30 % (12-44); MEAN CORPUSCULAR HEMOGLOBIN 35 PG (25-34); MEAN CORPUSCULAR HGB CONC 33 G/DL (32-36); MEAN CORPUSCULAR VOLUME 106 FL (80-99); MEAN PLATELET VOLUME 9.6 FL (7.4-10.4); MONOCYTES # (AUTO) 0.4 X 10^3 (0.0-1.0); MONOCYTES % (AUTO) 11 % (0-12); NEUTROPHILS # (AUTO) 2.3 X 10^3 (1.8-7.8); NEUTROPHILS % (AUTO) 57 % (42-75); PLATELET COUNT 205 10^3/uL (130-400); RED CELL DISTRIBUTION WIDTH 13.8 % (10.0-14.5)
[2019-10-11 14:08] LABS: BUN/CREATININE RATIO 18; CALCIUM 8.9 MG/DL (8.5-10.1); CARBON DIOXIDE 26 MMOL/L (21-32); CHLORIDE 108 MMOL/L (98-107); CREATININE SERUM 1.08 MG/DL (0.60-1.30); GFR ESTIMATED > 60; GLUCOSE 86 MG/DL (70-105); POTASSIUM 4.1 MMOL/L (3.6-5.0); SODIUM 141 MMOL/L (135-145)
[2019-10-18 13:56] LABS: BASOPHILS % (AUTO) 0 % (0-10); EOSINOPHILS # (AUTO) 0.1 10^3/uL (0.0-0.3); EOSINOPHILS % (AUTO) 1 % (0-10); HEMATOCRIT 38 % (40-54); HEMOGLOBIN 12.4 G/DL (13.3-17.7); LYMPHOCYTES # (AUTO) 0.9 X 10^3 (1.0-4.0); LYMPHOCYTES % (AUTO) 15 % (12-44); MEAN CORPUSCULAR HEMOGLOBIN 35 PG (25-34); MEAN CORPUSCULAR HGB CONC 33 G/DL (32-36); MEAN CORPUSCULAR VOLUME 105 FL (80-99); MEAN PLATELET VOLUME 9.6 FL (7.4-10.4); MONOCYTES # (AUTO) 0.6 X 10^3 (0.0-1.0); MONOCYTES % (AUTO) 10 % (0-12); NEUTROPHILS # (AUTO) 4.4 X 10^3 (1.8-7.8); NEUTROPHILS % (AUTO) 75 % (42-75); PLATELET COUNT 251 10^3/uL (130-400); RED CELL DISTRIBUTION WIDTH 13.8 % (10.0-14.5); WHITE BLOOD COUNT 5.9 10^3/uL (4.3-11.0)
[2019-10-18 14:15] LABS: BUN/CREATININE RATIO 18; CARBON DIOXIDE 25 MMOL/L (21-32); CHLORIDE 109 MMOL/L (98-107); CREATININE SERUM 1.08 MG/DL (0.60-1.30); GFR ESTIMATED > 60; GLUCOSE 122 MG/DL (70-105); POTASSIUM 3.9 MMOL/L (3.6-5.0); SODIUM 142 MMOL/L (135-145)
[~2019-10-25 10:22] MED LIST changes: +NS IV 1000 ML (CANCER CTR) IV SCH; +PACLitaxel PROTEIN 130 MG in EMPTY IV BAG (PVC) CANCER CTR 1 EA IV SCH; +PALONOSETRON HCL 0.25 MG, DEXAMETHASONE INJECTION 10 MG in NS (IVPB) CANCER CENTER 50 ML IV SCH
[2019-10-25 10:50] LABS: BASOPHILS % (AUTO) 0 % (0-10); EOSINOPHILS # (AUTO) 0.1 10^3/uL (0.0-0.3); EOSINOPHILS % (AUTO) 1 % (0-10); HEMATOCRIT 37 % (40-54); HEMOGLOBIN 12.1 G/DL (13.3-17.7); LYMPHOCYTES # (AUTO) 1.2 X 10^3 (1.0-4.0); LYMPHOCYTES % (AUTO) 21 % (12-44); MEAN CORPUSCULAR HEMOGLOBIN 35 PG (25-34); MEAN CORPUSCULAR HGB CONC 33 G/DL (32-36); MEAN CORPUSCULAR VOLUME 105 FL (80-99); MEAN PLATELET VOLUME 9.1 FL (7.4-10.4); MONOCYTES # (AUTO) 0.9 X 10^3 (0.0-1.0); MONOCYTES % (AUTO) 16 % (0-12); NEUTROPHILS # (AUTO) 3.4 X 10^3 (1.8-7.8); NEUTROPHILS % (AUTO) 61 % (42-75); PLATELET COUNT 294 10^3/uL (130-400); RED CELL DISTRIBUTION WIDTH 13.7 % (10.0-14.5); WHITE BLOOD COUNT 5.5 10^3/uL (4.3-11.0)
[2019-10-25 11:17] LABS: ALANINE AMINOTRANSFERASE 8 U/L (0-55); ALBUMIN 3.6 GM/DL (3.2-4.5); ALKALINE PHOSPHATASE 80 U/L (40-136); BILIRUBIN,TOTAL 0.3 MG/DL (0.1-1.0); BUN/CREATININE RATIO 14; CALCIUM 9.1 MG/DL (8.5-10.1); CARBON DIOXIDE 24 MMOL/L (21-32); CHLORIDE 108 MMOL/L (98-107); CREATININE SERUM 1.08 MG/DL (0.60-1.30); GFR ESTIMATED > 60; GLUCOSE 143 MG/DL (70-105); MAGNESIUM 1.8 MG/DL (1.6-2.4); POTASSIUM 3.2 MMOL/L (3.6-5.0); SODIUM 142 MMOL/L (135-145); TOTAL PROTEIN 6.4 GM/DL (6.4-8.2)
[2019-10-29] MEDS ORDERED: PACLitaxel PROTEIN 130 MG in EMPTY IV BAG (PVC) CANCER CTR 1 EA IV SCH (12:30)
== END 2019-11-07 | disposition home or self-care (01) ==
LOC: ONC 10:22
PROVIDERS: ATTEND Internal Medicine Hematology & Oncology
DX: Z51.11 Encounter for antineoplastic chemotherapy (principal); C79.31 Secondary malignant neoplasm of brain; C34.11 Malignant neoplasm of upper lobe, right bronchus or lung; I25.10 Atherosclerotic heart disease of native coronary artery without angina pectoris; E78.5 Hyperlipidemia, unspecified; I10 Essential (primary) hypertension
CPT/HCPCS: 80053; 83735; 85025; 96375; 96413; 96417; G0463; 36591; 71046; 80048